=== PATIENT | male | born 1945 | race Caucasian/White ===

== ENCOUNTER → 2020-05-03 12:53 | Outpatient (CLI) | payer MEDICARE, MEDICAID, SELFPAY ==
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
--- NOTE | 2020-05-03 13:00 | XR_ITS ---
PROCEDURE: XR KNEE RT 3V CLINICAL INDICATION: RT KNEE PAIN COMPARISON: No exams were available for comparison FINDINGS: No fracture or dislocation. No lytic or blastic change. There is normal mineralization. There is mild joint space narrowing both medially and laterally. There is prominent spurring of the tibial spines. There may be mild focal calcification of the medial lateral meniscus. There is narrowing of patellofemoral space with mild spurring of the superior border of the patella. There is no definite effusion. Other findings:None. IMPRESSION: Moderate degenerate changes, possible mild chondrocalcinosis of the medial and lateral meniscus Dictated by: Dr. Oskar Hector MD 05/03/2020 15:16 Dr. Oskar Hector MD in [facility] 05/03/2020 15:16
== END ==
PROVIDERS: PCP Family Medicine; Visit Provider Anesthesiology Pain Medicine
DX: M54.16 Radiculopathy, lumbar region (principal); M25.561 Pain in right knee
CPT/HCPCS: 72131; 73562

== ENCOUNTER 2020-11-28 08:58 | Emergency (ER) | payer MEDICARE, MEDICAID, SELFPAY ==
[2020-11-28 09:00] VITALS: BP 137/79; PULSE 65; RESP 20; TEMP 36.6; O2SAT 98; BMI 27.6
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
[2020-11-28 09:31] VITALS: BP 121/62; PULSE 62; RESP 18; O2SAT 95
[2020-11-28 11:18] VITALS: BP 137/75; PULSE 78; RESP 16; TEMP 36.6; O2SAT 98
== END 2020-11-28 11:19 | disposition home or self-care (01) ==
PROVIDERS: Emergency Provider Emergency Medicine; PCP Family Medicine
DX: S20.211A Contusion of right front wall of thorax, initial encounter (principal); W22.8XXA Striking against or struck by other objects, initial encounter; Y92.89 Other specified places as the place of occurrence of the external cause; F17.210 Nicotine dependence, cigarettes, uncomplicated
CPT/HCPCS: 71101; 96372; 99282

== ENCOUNTER 2021-01-26 02:34 | Emergency (ER) | payer MEDICARE, MEDICAID, SELFPAY ==
[2021-01-26 02:42] VITALS: BP 130/75; PULSE 78; RESP 16; TEMP 37; O2SAT 96; BMI 27.1
[2021-01-26 03:15] LABS: Basophils % 0.5 % (0.1-2.0); Chloride 104 mmol/L (98-107); Eosinophils # 0.1 K/mm3 (0.0-0.4); Eosinophils % 1.3 % (0.1-12.0); Hematocrit 42.3 % (42.0-52.0); Hemoglobin 13.9 g/dL (14.1-18.0); Lymphocytes # 1.7 K/mm3 (0.7-4.5); Lymphocytes % 20.2 % (10-50); Mean Corpuscular HGB Conc 32.9 g/dL (31.8-35.4); Mean Corpuscular Hemoglobin 29.2 pg (27.0-31.2); Mean Corpuscular Volume 88.8 fl (80-94); Mean Platelet Volume 8.6 fl (7.4-10.4); Monocytes # 0.4 K/mm3 (0.1-1.0); Monocytes % 5.5 % (1.7-9.3); Neutrophils # 5.9 K/mm3 (1.8-7.8); Neutrophils % 72.4 % (37.0-80.0); Platelet Count 147 K/mm3 (142-424); Red Blood Count 4.76 M/mm3 (4.60-6.20); Sodium 138 mmol/L (136-145); White Blood Count 8.1 K/mm3 (4.8-10.8)
[2021-01-26 03:18] LABS: Alanine Aminotransferase 10 U/L (12-78); Albumin Level 4.4 g/dl (3.5-5.0); Albumin/Globulin Ratio 1.6 (1.1-1.8); Alkaline Phosphatase 85 U/L (38-126); Aspartate Amino Transferase 20 U/L (17-59); Bilirubin,Total 0.4 mg/dl (0.2-1.3); Blood Urea Nitrogen 13 mg/dl (9-20); Calcium 9.4 mg/dl (8.4-10.2); Carbon Dioxide 27 mmol/L (22.0-30.0); Creatinine Clearance Estimated 84 mL/min (50-200); Estimated Glomerular Filt Rate 111 ml/min (>60); GFR (African American) 134 ML/MIN (>60); Globulin 2.8 g/dL (1.3-3.2); Glucose 106 mg/dl (74-100); Total Protein,Serum 7.2 g/dl (6.3-8.2)
--- NOTE | 2021-01-26 03:41 | HMH.EDGENADL ---
ED Disposition Clinical Impression: Vomiting Qualifiers: Vomiting type: unspecified Vomiting Intractability: non-intractable Nausea presence: with nausea Qualified Code(s): R11.2 - Nausea with vomiting, unspecified Chronic pain Qualifiers: Chronic pain type: other chronic pain Qualified Code(s): G89.29 - Other chronic pain Disposition: Home, Self-Care Condition on Discharge: Good Additional Instructions: Follow-up with your primary care doctor today. Take Zofran as needed for nausea and vomiting. Return to the emergency department for any new or worsening symptoms. Prescriptions: Ondansetron [Zofran 4mg ODT] 4 mg PO TIDP PRN #10 tab PRN Reason: Nausea And Vomiting Transmission Status: Pending to [facility] Referrals: Macey Sandoval MD [Primary Care Provider] - - Critical Care Critical Care Time: No Attestation: On 01/26/21, the high probability of a clinically significant, sudden or life threatening deterioration of the following system(s) required my full and direct attention, intervention and personal management. The time I documented below is in addition to time spent performing reported procedures but includes the following listed in this critical care notation. Medical Decision Making - Blair Inquiry Pt receiving controlled substance: Yes Blair was queried for this patient: Yes Risks and benefits of using a controlled substance: were discussed with pt by me Vital Signs: 01/26/21 02:42 Temperature 98.6 F Temperature Source Oral Pulse Rate [Right Brachial] 78 Respiratory Rate 16 Blood Pressure [Right Arm] 130/75 Blood Pressure Mean [Right Arm] 93 Blood Pressure Source [Right Arm] Automatic Cuff Blood Pressure Position [Right Arm] Sitting 02 Sat by Pulse Oximetry 96 Oxygen Delivery Method Room Air - Lab Data Lab Results 01/26/21 02:57: WBC 8.1, RBC 4.76, Hgb 13.9 L, Hct 42.3, MCV 88.8, MCH 29.2, MCHC 32.9, RDW 14.0, Plt Count 147, MPV 8.6, Neut % (Auto) 72.4, Lymph % (Auto) 20.2, Dent % (Auto) 5.5, Eos % (Auto) 1.3, Baso % (Auto) 0.5, Neut # (Auto) 5.9, Lymph # (Auto) 1.7, Dent # (Auto) 0.4, Eos # (Auto) 0.1, Baso # (Auto) 0.0 01/26/21 02:57: Sodium 138, Potassium 4.0, Chloride 104, Carbon Dioxide 27, Anion Gap 11.0, BUN 13, Creatinine 0.70, Estimated Creat Clear 84, Estimated GFR 111, Est GFR ( Amer) 134, Glucose 106 H, Calcium 9.4, Total Bilirubin 0.4, AST 20, ALT 10 L, Alkaline Phosphatase 85, Total Protein 7.2, Albumin 4.4, Globulin 2.8, Albumin/Globulin Ratio 1.6 Result diagrams: 01/26/21 02:57 01/26/21 02:57 Orders (Tests/Meds): ED MEDICATIONS Generic Name Dose Route Start Last Admin Trade Name Freq PRN Reason Stop Dose Admin Lactated Ringer's 1,000 mls @ 999 mls/hr 01/26/21 03:15 01/26/21 03:33 Lactated Ringer's 1000 Ml Bag IV 01/26/21 04:15 999 mls/hr .Q1H1M MATTY Administration Discontinued Medications Generic Name Dose Route Start Last Admin Trade Name Freq PRN Reason Stop Dose Admin Gabapentin 400 mg 01/26/21 03:59 01/26/21 04:13 Gabapentin 100mg Capsule PO 01/26/21 04:00 400 mg ONCE ONE Administration Morphine Sulfate 4 mg 01/26/21 03:09 01/26/21 03:32 Morphine 4mg/Ml Syringe IV 01/26/21 03:10 4 mg ONCE ONE Administration Ondansetron HCl 4 mg 01/26/21 03:09 01/26/21 03:32 Ondansetron 4mg/2ml Vial IV 01/26/21 03:10 4 mg ONCE ONE Administration Medical Decision Narrative: The patient is a 75-year-old male who presents to the emergency department with worsening of chronic leg and back pain after being unable to keep medication down due to 4 days of vomiting. The patient's vital signs are stable and he is overall very well-appearing. The patient has not taken any medication for nausea. He reports that his pain is no different than his chronic pain just worse because he is unable to keep his medication down. He states it is similar to pain when he does not take his medication. Given that there has bee
[2021-01-26 05:47] VITALS: BP 126/82; PULSE 79; RESP 16; TEMP 37; O2SAT 96
== END 2021-01-26 05:48 | disposition home or self-care (01) ==
PROVIDERS: Emergency Provider Emergency Medicine; PCP Family Medicine
DX: R11.2 Nausea with vomiting, unspecified (principal); G89.29 Other chronic pain; F17.210 Nicotine dependence, cigarettes, uncomplicated
CPT/HCPCS: 80053; 85025; 96365; 96375; 99282; J2405

== ENCOUNTER 2022-01-28 00:47 | Emergency (ER) | payer MEDICARE, MEDICAID, SELFPAY ==
[2022-01-28 00:49] VITALS: BP 145/83; PULSE 83; RESP 19; TEMP 37; O2SAT 96; BMI 26.7
--- NOTE | 2022-01-28 01:08 | PC.NURSE ---
MD at bedside discussing POC with pt
--- NOTE | 2022-01-28 01:14 | HMH.EDGENADL ---
ED Disposition Clinical Impression: Chronic pain Qualifiers: Chronic pain type: other chronic pain Qualified Code(s): G89.29 - Other chronic pain Low back pain with bilateral sciatica Qualifiers: Chronicity: chronic Back pain laterality: bilateral Qualified Code(s): M54.42 - Lumbago with sciatica, left side Disposition: Home, Self-Care Condition on Discharge: Good Instructions: DI for Chronic Pain -- Adult, How to Measure Pain-Adult Additional Instructions: Please contact your pain clinic as soon as possible to arrange follow-up for refills. It is important you take your pain medications at home as prescribed to avoid running out or overdose. Return to the emergency department for any new or concerning symptoms, including but not limited to new numbness or tingling, urinary incontinence, fecal incontinence, or other concerns. Referrals: Evangelist Victoria MD [Primary Care Provider] - - Critical Care Critical Care Time: No Attestation: On 01/28/22, the high probability of a clinically significant, sudden or life threatening deterioration of the following system(s) required my full and direct attention, intervention and personal management. The time I documented below is in addition to time spent performing reported procedures but includes the following listed in this critical care notation. Medical Decision Making - Blair Inquiry Pt receiving controlled substance: No Vital Signs: 01/28/22 00:49 Temperature 98.6 F Temperature Source Oral Pulse Rate [Left Radial] 83 Respiratory Rate 19 Blood Pressure [Right Arm] 145/83 H Blood Pressure Mean [Right Arm] 103 Blood Pressure Source [Right Arm] Automatic Cuff Blood Pressure Position [Right Arm] Sitting 02 Sat by Pulse Oximetry 96 Oxygen Delivery Method Room Air Orders (Tests/Meds): ED MEDICATIONS Discontinued Medications Generic Name Dose Route Start Last Admin Trade Name Freq PRN Reason Stop Dose Admin Gabapentin 600 mg 01/28/22 01:13 01/28/22 01:21 Gabapentin 300mg Capsule PO 01/28/22 01:14 600 mg ONCE ONE Administration Medical Decision Narrative: In summary, this patient is a 76-year-old male with a history of chronic low back pain presented to the emergency department for evaluation because he ran out of gabapentin. No new symptoms. Differential diagnoses include chronic pain, sciatica, disc herniation, cauda equina syndrome. Patient has no alarm symptoms of cauda equina syndrome. He is at his baseline and comfortable appearing on exam. He is here because he is requesting to go home with for 5 tablets of gabapentin, however he does not want a prescription for fear of breaking his pain contract. I explained to him that we could give him a dose here, however we are not able to send him out with gabapentin tablets in hand. He expressed understanding agreement, and he is to call his pain clinic soon as possible for further evaluation and management. He was given 600 mg of gabapentin, which is his home dose, and he tolerated this well. At this time, he was deemed to be appropriate for discharge with outpatient follow-up. He was given strict return precautions and discharged in stable condition. General Adult HPI - General Stated complaint: Bilateral leg pain and burning Time Seen by Provider: 01/28/22 00:50 Mode of Arrival: Ambulatory - History of Present Illness HPI narrative: This patient is a 76-year-old male with a history of chronic low back pain with bilateral sciatica presenting to the emergency department for evaluation because he ran out of gabapentin at home. He follows with a pain clinic and is not due for refill for several more days. He denies any changes in his pain. It is in the middle of his low back and radiates down both legs, right greater than left. It is a dull ache in his back into burning pain in his lower extremities. It is moderate. He denies any new injuries. He denies any new numbness, tinglin
[2022-01-28 01:43] VITALS: BP 143/87; PULSE 83; RESP 16; TEMP 36.7; O2SAT 95
== END 2022-01-28 01:44 | disposition home or self-care (01) ==
PROVIDERS: Emergency Provider Emergency Medicine; PCP Family Medicine
DX: G89.29 Other chronic pain (principal); M54.42 Lumbago with sciatica, left side
CPT/HCPCS: 99283

== ENCOUNTER → 2022-02-13 13:41 | Outpatient (CLI) | payer MEDICARE, MEDICAID, SELFPAY ==
--- NOTE | 2022-02-13 14:08 | CT_ITS ---
FINAL REPORT TECHNIQUE: Axial images were obtained from the lung apex to the mid abdomen by computed tomography. This study was performed with techniques to keep radiation doses as low as reasonably achievable (ALARA). Individualized dose reduction techniques using automated exposure control or adjustment of mA and/or kV according to the patient's size were employed. CLINICAL HISTORY: H/O NICOTINE DEPENDENCE smoker 1ppd x 50 years no hx of cancer screening FINDINGS: CHEST CT LOW DOSE CTDI vol (mGy): 2.90 DLP (mGy-cm): 112.29 There is no axillary adenopathy. There is no hilar or mediastinal adenopathy. The heart is normal in size. There is no pericardial or pleural effusion. There is mild scarring and mild emphysema. There is a 2 mm right lower lobe nodule well seen on image 58. Limited images of the upper abdomen reveal cholecystectomy.. IMPRESSION: Right lower lobe nodule . Lung RADS category 2. Recommend 12 month follow-up low-dose chest CT. Reviewed, Interpreted and Dictated by Dre Vo III, MD Transcribed by Sofie Bang Authenticated and [facility]
== END ==
PROVIDERS: PCP Family Medicine; Visit Provider Family Medicine
DX: Z87.891 Personal history of nicotine dependence (principal); Z12.2 Encounter for screening for malignant neoplasm of respiratory organs
CPT/HCPCS: 71271

== ENCOUNTER 2022-06-25 08:16 | Emergency (ER) | payer MEDICARE, MEDICAID, SELFPAY ==
[2022-06-25 08:18] VITALS: BP 140/116; PULSE 99; RESP 18; TEMP 36.9; O2SAT 95; BMI 26.6
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
[2022-06-25 08:46] LABS: Basophils % 0.6 % (0.1-2.0); Eosinophils # 0.2 K/mm3 (0.0-0.4); Eosinophils % 2.1 % (0.1-12.0); Hematocrit 30.8 % (42.0-52.0); Hemoglobin 9.6 g/dL (14.1-18.0); Lymphocytes % 28.6 % (10-50); Mean Corpuscular HGB Conc 31.3 g/dL (31.8-35.4); Mean Corpuscular Hemoglobin 22.6 pg (27.0-31.2); Mean Corpuscular Volume 72.1 fl (80-94); Mean Platelet Volume 7.9 fl (7.4-10.4); Monocytes # 0.4 K/mm3 (0.1-1.0); Monocytes % 6.3 % (1.7-9.3); Neutrophils # 4.4 K/mm3 (1.8-7.8); Neutrophils % 62.4 % (37.0-80.0); Platelet Count 371 K/mm3 (142-424); Red Blood Count 4.27 M/mm3 (4.60-6.20); Red Cell Distribution Width 17.9 % (11.5-17.5)
--- NOTE | 2022-06-25 08:46 | PC.NURSE ---
pt ambulatory to restroom with cane, no complications
[2022-06-25 08:54] LABS: Chloride 102 mmol/L (98-107); Sodium 136 mmol/L (136-145)
[2022-06-25 08:57] LABS: Alanine Aminotransferase 12 U/L (12-78); Alkaline Phosphatase 84 U/L (38-126); Aspartate Amino Transferase 19 U/L (17-59); Bilirubin,Total 0.5 mg/dl (0.2-1.3); Blood Urea Nitrogen 13 mg/dl (9-20); Carbon Dioxide 29 mmol/L (22.0-30.0); Creatinine Clearance Estimated 81 mL/min (50-200); Estimated Glomerular Filt Rate 132 ml/min (>60); GFR (African American) 159 ML/MIN (>60); Lipase 86 U/L (23-300)
[2022-06-25 08:58] LABS: Albumin/Globulin Ratio 1.4 (1.1-1.8); Calcium 9.4 mg/dl (8.4-10.2); Globulin 2.9 g/dL (1.3-3.2); Glucose 105 mg/dl (74-100); Total Protein,Serum 6.9 g/dl (6.3-8.2)
[2022-06-25 09:06] VITALS: BP 118/76; PULSE 70; O2SAT 94
[2022-06-25 09:08] LABS: Coronavirus 19, PCR Not Detected (NotDetected); Influenza A, PCR Not Detected (NotDetected); Influenza B, PCR Not Detected (NotDetected)
--- NOTE | 2022-06-25 09:30 | PC.NURSE ---
pt to Ct
[2022-06-25 09:36] LABS: Microscopic, Urine URINE MICROSCOPIC (MICROSCOPIC)
[2022-06-25 09:38] LABS: Appearance,Urine CLEAR (Clear); Bilirubin,Urine Negative (Negative); Blood, Urine Negative (Negative); Color,Urine YELLOW (Yellow); Glucose,Urine (UA) Negative (Negative); Ketones,Urine Negative (Negative); Leukocyte Esterase,Urine Negative (Negative); Nitrate,Urine Negative (Negative); PH,Urine 6.5 (5.0-8.5); Protein,Urine Negative (Negative); Specific Gravity, Urine 1.015 (1.005-1.030); Urobilinogen,Urine 0.2 EU/dl (0.2)
[2022-06-25 09:49] LABS: Bacteria,Urine Trace /lpf; Squamous Epithelial Cell,Urine Occasional #/hpf (0-5)
[2022-06-25 10:01] VITALS: BP 129/62; PULSE 85; O2SAT 96
--- NOTE | 2022-06-25 11:27 | PC.NURSE ---
PALMIRA ALEJANDRO speaking with SARAN
[2022-06-25 12:50] VITALS: BP 119/63; PULSE 72; RESP 18; TEMP 36.9; O2SAT 96
== END 2022-06-25 12:55 | disposition home or self-care (01) ==
PROVIDERS: Emergency Provider Emergency Medicine; PCP Family Medicine
DX: M54.50 Low back pain, unspecified (principal); R11.2 Nausea with vomiting, unspecified; R19.7 Diarrhea, unspecified; R53.1 Weakness; N39.43 Post-void dribbling; Z20.822 Contact with and (suspected) exposure to COVID-19; F17.210 Nicotine dependence, cigarettes, uncomplicated; Z79.1 Long term (current) use of non-steroidal anti-inflammatories (NSAID); Z79.899 Other long term (current) drug therapy
CPT/HCPCS: 74177; 80053; 81001; 83690; 85025; 87086; 87088; 87186; 96361; 96374; 96375; 99285; C9803; J2405; Q9967; U0003; U0005

== ENCOUNTER 2022-08-15 06:06 | Day surgery (SDC) | payer MEDICARE, MEDICAID, SELFPAY ==
[2022-08-13 12:06] VITALS: BMI 26.6
[2022-08-15 06:33] VITALS: BP 131/82; PULSE 111; RESP 18; TEMP 36.5; O2SAT 97
--- NOTE | 2022-08-15 06:38 | [facility].SCOPE ---
Procedure: Date: 08/15/22 Patient Date of :: 1945 Procedure Performed:: Colonoscopy (aborted secondary to exceedingly poor bowel preparation) Indications:: Abnormal CT scan of abdomen/pelvis (abnormal thickening of right colon concerning for neoplasm) Performing Provider:: Joao Gaviria MD Referring Provider:: Dr. Victoria Sedation:: Monitored anesthesia care Procedure:: After informed consent was obtained the patient was taken to the endoscopy suite. Sedation ensued after the patient was transferred to the left lateral decubitus position. Pulse, blood pressure, and oxygen saturation were monitored throughout the procedure. Digital rectal exam revealed no significant abnormality. The colonoscope was placed in position. The distal colon was evaluated partially. Limited visualization secondary to exceedingly poor bowel preparation. Advancement of the colonoscope beyond the transverse colon was deemed unwarranted/unsafe. The colonoscope was carefully removed and the patient was transferred to recovery in stable condition. Please see findings and specimens below for detail. Findings:: Colonoscopy aborted secondary to exceedingly poor bowel preparation Specimens:: None Recommendations:: Will discuss with patient the importance of a tissue diagnosis and will proceed with future attempts or consultation in a different facility if the patient is agreeable. Complications:: Aborted secondary to poor bowel preparation Estimated blood obtained (mL): 0
[2022-08-15 07:00] VITALS: O2SAT 97
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
[2022-08-15 07:33] VITALS: BP 87/47; PULSE 88; RESP 15; TEMP 36.2; O2SAT 92
[2022-08-15 07:43] VITALS: BP 90/52; PULSE 70; RESP 16; O2SAT 95
[2022-08-15 07:53] VITALS: BP 109/61; PULSE 70; RESP 16; O2SAT 96
[2022-08-15 08:15] VITALS: BP 96/60; PULSE 78; RESP 16; O2SAT 96
== END 2022-08-15 08:15 | disposition home or self-care (01) ==
PROVIDERS: PCP Family Medicine; Visit Provider Surgery
PROC: 0DJD8ZZ Inspection of Lower Intestinal Tract, Via Natural or Artificial Opening Endoscopic (ICD-10-PCS; principal; 2022-08-15 07:30)
DX: R93.3 Abnormal findings on diagnostic imaging of other parts of digestive tract (principal); Z53.09 Procedure and treatment not carried out because of other contraindication; Z91.199 Patient's noncompliance with other medical treatment and regimen due to unspecified reason; Z86.010 Personal history of colon polyps; F17.210 Nicotine dependence, cigarettes, uncomplicated
CPT/HCPCS: 45378; J1610; J2704

== ENCOUNTER 2022-08-16 07:05 | Day surgery (SDC) | payer MEDICARE, MEDICAID, SELFPAY ==
[2022-08-15 09:36] VITALS: BMI 26.5
[2022-08-16] VITALS (7 sets, daily range): BP systolic 82–114; BP diastolic 46–75; PULSE 55–83; RESP 15–18; TEMP 36.1–36.3; O2SAT 95–98
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
--- NOTE | 2022-08-16 09:08 | HMH.SCOPE ---
Procedure: Date: 08/16/22 Patient Date of :: 1945 Procedure Performed:: Colonoscopy with biopsies Indications:: Abnormal CT scan Performing Provider:: Issac Varghese MD Referring Provider:: Evangelist Victoria Sedation:: Propofol Procedure:: After placing the patient in the left lateral decubitus position, the colonoscopy was gently inserted into the rectum and under direct visualization advanced to the cecum which was identified by transillumination in the right lower quadrant, identification of the ileocecal valve, appendiceal orifice, and cecal strap. Color, texture, mucosa, and anatomy of the colon were carefully examined with the scope. Findings:: Anal canal: normal Rectum: normal Sigmoid colon: normal without polyps or inflammatory changes Descending colon: normal without polyps or inflammatory changes Splenic flexure: normal Transverse colon: normal without polyps or inflammatory changes Hepatic flexure: normal Ascending colon: Large apple-core mucosal lesion occupying most of the ascending colon. Multiple biopsies obtained Cecum: normal Terminal ileum: Normal Impression: Right colon apple-core mass consistent with malignancy Specimens:: Colon mass Recommendations:: Surgical resection Repeat colonoscopy in ONE year after resection Complications:: None Estimated blood obtained (mL): 0
== END 2022-08-16 09:50 | disposition home or self-care (01) ==
PROVIDERS: PCP Family Medicine; Visit Provider Internal Medicine Gastroenterology
PROC: 0DJD8ZZ Inspection of Lower Intestinal Tract, Via Natural or Artificial Opening Endoscopic (ICD-10-PCS; CPT 45378; principal; 2022-08-16 08:30)
DX: R93.3 Abnormal findings on diagnostic imaging of other parts of digestive tract (principal); C18.2 Malignant neoplasm of ascending colon; F17.210 Nicotine dependence, cigarettes, uncomplicated; Z79.899 Other long term (current) drug therapy
CPT/HCPCS: 45380; 88305; 88342

== ENCOUNTER → 2022-08-27 08:34 | Outpatient (CLI) | payer MEDICARE, MEDICAID, SELFPAY ==
--- NOTE | 2022-08-27 08:40 | CT_ITS ---
FINAL REPORT TECHNIQUE: Thin section axial images were obtained from the lung apices through the upper abdomen without contrast. This study was performed with techniques to keep radiation doses as low as reasonably achievable (ALARA). Individualized dose reduction techniques using automated exposure control or adjustment of mA and/or kV according to the patient's size were employed. CLINICAL HISTORY: HX OF COLON CANCER. eval chest COMPARISON: 06/25/2022, 02/13/2022 FINDINGS: There is no mediastinal, hilar, or axillary lymphadenopathy. There is no pleural or pericardial effusion. There is emphysematous change. A right lower lobe granuloma is seen. Lungs are otherwise clear. No suspicious nodules identified.. Limited, unenhanced evaluation of the upper abdomen demonstrate changes of cholecystectomy with mild, stable biliary ductal dilatation. There may be a new hypodense lesion in the left hepatic lobe measuring 14 mm. Remaining upper abdomen without acute abnormality. There is no acute osseous abnormality. IMPRESSION: No acute intrathoracic abnormality or evidence of metastatic disease. Possible new liver lesion. Consider repeat contrast enhanced CT of the abdomen and pelvis or MRI liver mass protocol for further evaluation. Reviewed, Interpreted and Dictated by Isela Parr MD Transcribed by Charlee Elizabeth Authenticated and . [facility]
== END ==
PROVIDERS: PCP Family Medicine; Visit Provider Colon & Rectal Surgery
DX: C18.9 Malignant neoplasm of colon, unspecified (principal)
CPT/HCPCS: 71250

== ENCOUNTER 2022-10-27 11:59 | Emergency (ER) | payer MEDICARE, MEDICAID, SELFPAY ==
[2022-10-27 12:14] VITALS: BP 150/67; PULSE 79; RESP 18; TEMP 37.4; O2SAT 95; BMI 26.7
[2022-10-27 12:30] VITALS: BP 106/58; PULSE 81; O2SAT 92
--- NOTE | 2022-10-27 12:34 | CT_ITS ---
PROCEDURE INFORMATION: Exam: CT Abdomen And Pelvis With Contrast Exam date and time: 10/27/2022 2:24 PM Age: 77 years old Clinical indication: Constipation; Prior surgery; Additional info: Remote bowel resection, cancer, no bm TECHNIQUE: Imaging protocol: Computed tomography of the abdomen and pelvis with contrast. Radiation optimization: All CT scans at this facility use at least one of these dose optimization techniques: automated exposure control; mA and/or kV adjustment per patient size (includes targeted exams where dose is matched to clinical indication); or iterative reconstruction. Contrast material: ISOVUE; Contrast volume: 75 ml; Contrast route: IV; REPORTING DATA: Count of CT and Cardiac NM exams in prior 12 months: This patient has received 3 known CTs and 0 known cardiac nuclear medicine studies in the 12 months prior to the current study. COMPARISON: CT ABDOMEN PELVIS W CON 06/25/2022 9:32 AM FINDINGS: Liver: Normal. No mass. Gallbladder and bile ducts: Cholecystectomy. Persistent intra and extrahepatic biliary dilatation unchanged. Pancreas: Normal. No ductal dilation. Spleen: Evidence of prior splenic granulomatous disease. Adrenal glands: Normal. No mass. Kidneys and ureters: Normal. No hydronephrosis. Stomach and bowel: Colonic diverticulosis. No evidence of diverticulitis. Persistent asymmetric wall thickening of the ascending colon with marked irregularity of the lumen. Findings do not appear significantly changed compared with the previous study. Findings highly suspicious for malignancy until proven otherwise. Moderate stool burden. Mild thickening of distal small bowel loops in the region of the terminal ileum just proximal to the cecal mass. Appendix: No evidence of appendicitis. Intraperitoneal space: Unremarkable. No free air. No significant fluid collection. Vasculature: Scattered regions of atherosclerotic vascular calcification within the abdominal aorta and common iliac arteries. Lymph nodes: Nonspecific mesenteric and retroperitoneal lymph nodes. Urinary bladder: Unremarkable as visualized. Reproductive: Unremarkable as visualized. Bones/joints: Lumbar spondylosis with advanced changes of disc degeneration. Metallic densities again demonstrated in association with the lower lumbar spine consistent with previous injury. Soft tissues: Unremarkable. IMPRESSION: 1. Persistent asymmetric wall thickening of the ascending colon with marked irregularity of the lumen. Findings do not appear significantly changed compared with the 06/25/2022 examination. Findings highly suspicious for malignancy until proven otherwise. 2. Moderate stool burden. 3. Nonspecific mesenteric and retroperitoneal lymph nodes. Findings new. 4. Recommend follow-up with colonoscopy.
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
--- NOTE | 2022-10-27 13:50 | PC.NURSE ---
rounded on pt no complaints at this time, call light @ bs
[2022-10-27 14:01] VITALS: BP 110/60; PULSE 71; O2SAT 96
[2022-10-27 14:08] LABS: Chloride 97 mmol/L (98-107); Potassium 4.1 mmoL/L (3.5-5.1); Sodium 136 mmol/L (136-145)
[2022-10-27 14:09] LABS: Basophils % 0.2 % (0.1-2.0); Eosinophils # 0.2 K/mm3 (0.0-0.4); Eosinophils % 2.8 % (0.1-12.0); Hematocrit 35.7 % (42.0-52.0); Hemoglobin 10.9 g/dL (14.1-18.0); Lymphocytes % 27.9 % (10-50); Mean Corpuscular HGB Conc 30.4 g/dL (31.8-35.4); Mean Corpuscular Volume 82.1 fl (80-94); Mean Platelet Volume 8.8 fl (7.4-10.4); Monocytes # 0.5 K/mm3 (0.1-1.0); Monocytes % 7.4 % (1.7-9.3); Neutrophils # 4.4 K/mm3 (1.8-7.8); Neutrophils % 61.7 % (37.0-80.0); Platelet Count 333 K/mm3 (142-424); Red Blood Count 4.35 M/mm3 (4.60-6.20); Red Cell Distribution Width 20.5 % (11.5-17.5); White Blood Count 7.2 K/mm3 (4.8-10.8)
--- NOTE | 2022-10-27 14:09 | PC.NURSE ---
covid swab sent to lab
[2022-10-27 14:10] LABS: Blood Urea Nitrogen 10 mg/dl (9-20); Creatinine Clearance Estimated 81 mL/min (50-200); Estimated Glomerular Filt Rate 162 ml/min (>60); GFR (African American) 196 ML/MIN (>60)
[2022-10-27 14:11] LABS: Alanine Aminotransferase 13 U/L (12-78); Albumin Level 3.8 g/dl (3.5-5.0); Albumin/Globulin Ratio 1.2 (1.1-1.8); Alkaline Phosphatase 84 U/L (38-126); Anion Gap 14.1 mEq/L (5-15); Aspartate Amino Transferase 23 U/L (17-59); Bilirubin,Total 0.3 mg/dl (0.2-1.3); Calcium 9.2 mg/dl (8.4-10.2); Carbon Dioxide 29 mmol/L (22.0-30.0); Globulin 3.1 g/dL (1.3-3.2); Glucose 105 mg/dl (74-100); Lipase 38 U/L (23-300); Total Protein,Serum 6.9 g/dl (6.3-8.2)
--- NOTE | 2022-10-27 14:12 | PC.NURSE ---
Waiting on lab to come back before pt can go to ct scan
[2022-10-27 14:13] LABS: Coronavirus 19, PCR Not Detected (NotDetected); Influenza A, PCR Not Detected (NotDetected); Influenza B, PCR Not Detected (NotDetected)
[2022-10-27 16:58] VITALS: BP 112/71; PULSE 77; RESP 20; TEMP 37.4; O2SAT 97
== END 2022-10-27 17:00 | disposition home or self-care (01) ==
PROVIDERS: Emergency Provider Emergency Medicine; PCP Family Medicine
DX: K59.00 Constipation, unspecified (principal); C18.9 Malignant neoplasm of colon, unspecified; F17.210 Nicotine dependence, cigarettes, uncomplicated
CPT/HCPCS: 74177; 80053; 83690; 85025; 96360; 99285; C9803; Q9967; U0003; U0005

== ENCOUNTER → 2022-12-05 13:46 | Outpatient (CLI) | payer MEDICARE, MEDICAID, SELFPAY ==
[2022-12-05 14:19] LABS: Blood Urea Nitrogen 18 mg/dl (9-20); Estimated Glomerular Filt Rate 110 ml/min (>60); GFR (African American) 133 ML/MIN (>60)
== END ==
PROVIDERS: PCP Family Medicine; Visit Provider Family Medicine
DX: Z01.812 Encounter for preprocedural laboratory examination (principal)
CPT/HCPCS: 36415; 82565; 84520

== ENCOUNTER → 2022-12-07 09:07 | Outpatient (CLI) | payer MEDICARE, MEDICAID, SELFPAY | PROVIDERS: PCP Family Medicine; Visit Provider Colon & Rectal Surgery | DX: K83.8 Other specified diseases of biliary tract (principal) ==

== ENCOUNTER 2023-05-26 04:33 | Emergency (ER) | payer MEDICARE, MEDICAID, SELFPAY ==
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
[2023-05-26 04:39] VITALS: BP 151/80; PULSE 85; RESP 18; TEMP 36.6; O2SAT 99; BMI 26.6
[2023-05-26] MEDS: GABAPENTIN 600MG TABLET 600 MG PO (04:46)
--- OUTSIDE RECORDS SUMMARY | 2023-05-26 04:46 | XMS_ITS | Continuity of Care Document ---
Author Name Unknown Organization [facility] Address [address] [place] [address] Phone Care Team Providers Care Counter Former Name Role Phone Miguel Connor MD Unavailable Unavailable Allergies, Adverse Reactions, Alerts Substance Reaction Status Criticality No Known Drug Allergies Active No I nformation Procedures Procedure Date OFFICE/OUTPATIENT VISIT, EST PHONE E/M BY PHYS 5-10 MIN PHONE E/M BY PHYS 5-10 MIN OFFICE/OUTPATIENT VISIT, EST Presumptive EIA Definitive, UDS Panel 15-21 Drugs PHONE E/M BY PHYS 5-10 MIN PHONE E/M BY PHYS 5-10 MIN Presumptive EIA OFFICE/OUTPATIENT VISIT, EST Definitive, UDS Panel 15-21 Drugs PHONE E/M BY PHYS 5-10 MIN PHONE E/M BY PHYS 5-10 MIN Presumptive EIA OFFICE/OUTPATIENT VISIT, EST Definitive, UDS Panel 15-21 Drugs PHONE E/M BY PHYS 5-10 MIN PHONE E/M BY PHYS 5-10 MIN OFFICE/OUTPATIENT VISIT, EST Presumptive EIA OFFICE/OUTPATIENT VISIT, EST Definitive, UDS Panel 15-21 Drugs TELEHEALTH OFFICE/OUTPATIENT VISIT, EST TELEHEALTH OFFICE/OUTPATIENT VISIT, EST TELEHEALTH OFFICE/OUTPATIENT VISIT, EST Presumptive EIA OFFICE/OUTPATIENT VISIT, EST Definitive, UDS Panel 15-21 Drugs DRAIN/INJ JOINT/BURSA W/US Gel-syn injection 0.1 mg Lidocaine injection Presumptive EIA DRAIN/INJ JOINT/BURSA W/US Gel-syn injection 0.1 mg Lidocaine injection Definitive, UDS Panel 15-21 Drugs TELEHEALTH OFFICE/OUTPATIENT VISIT, EST DRAIN/INJ JOINT/BURSA W/US Lidocaine injection Gel-syn injection 0.1 mg OFFICE/OUTPATIENT VISIT, EST Presumptive EIA OFFICE/OUTPATIENT VISIT, EST Definitive, UDS Panel 15-21 Drugs OFFICE/OUTPATIENT VISIT, EST OFFICE/OUTPATIENT VISIT, EST OFFICE/OUTPATIENT VISIT, EST Presumptive EIA OFFICE/OUTPATIENT VISIT, EST Definitive, UDS Panel 15-21 Drugs DRAIN/INJ JOINT/BURSA W/US Gel-syn injection 0.1 mg Lidocaine injection DRAIN/INJ JOINT/BURSA W/US Gel-syn injection 0.1 mg Lidocaine injection DRAIN/INJ JOINT/BURSA W/US Gel-syn injection 0.1 mg Lidocaine injection OFFICE/OUTPATIENT VISIT, EST Presumptive EIA Definitive, UDS Panel 15-21 Drugs DRAIN/INJ JOINT/BURSA W/US Methylprednisolone 40 MG inj Lidocaine injection BUPIVACAINE NO EPI .25% PER 1 ML 2018 OFFICE/OUTPATIENT VISIT, EST OFFICE/OUTPATIENT VISIT, EST OFFICE/OUTPATIENT VISIT, EST DRAIN/INJ JOINT/BURSA W/US Gel-syn injection 0.1 mg OFFICE/OUTPATIENT VISIT, EST DRAIN/INJ JOINT/BURSA W/US Presumptive EIA Gel-syn injection 0.1 mg Definitive, UDS Panel 15-21 Drugs DRAIN/INJ JOINT/BURSA W/US Gel-syn injection 0.1 mg DRAIN/INJ JOINT/BURSA W/US Methylprednisolone 40 MG inj OFFICE/OUTPATIENT VISIT, EST OFFICE/OUTPATIENT VISIT, EST Presumptive EIA Definitive, UDS Panel 15-21 Drugs OFFICE/OUTPATIENT VISIT, EST OFFICE/OUTPATIENT VISIT, EST OFFICE/OUTPATIENT VISIT, EST OFFICE/OUTPATIENT VISIT, EST Presumptive EIA Definitive, UDS Panel 15-21 Drugs OFFICE/OUTPATIENT VISIT, EST OFFICE/OUTPATIENT VISIT, EST Presumptive EIA OFFICE/OUTPATIENT VISIT, EST Definitive, UDS Panel 15-21 Drugs OFFICE/OUTPATIENT VISIT, EST DRAIN/INJ JOINT/BURSA W/US Hyalgan/supartz inj per dose OFFICE/OUTPATIENT VISIT, EST DRAIN/INJ JOINT/BURSA W/US Hyalgan/supartz inj per dose Presumptive EIA Definitive, UDS Panel 15-21 Drugs OFFICE/OUTPATIENT VISIT, EST OFFICE/OUTPATIENT VISIT, EST Presumptive EIA OFFICE/OUTPATIENT VISIT, EST Definitive, UDS Panel 15-21 Drugs OFFICE/OUTPATIENT VISIT, EST OFFICE/OUTPATIENT VISIT, EST Presumptive EIA OFFICE/OUTPATIENT VISIT, EST Definitive, UDS Panel 15-21 Drugs OFFICE/OUTPATIENT VISIT, EST OFFICE/OUTPATIENT VISIT, EST OFFICE/OUTPATIENT VISIT, EST Presumptive, Drug Screen,cup OFFICE/OUTPATIENT VISIT, EST Definitive, UDS Panel 15-21 Drugs OFFICE/OUTPATIENT VISIT, EST DRAIN/INJ JOINT/BURSA W/US Hyalgan/supartz inj per dose OFFICE/OUTPATIENT VISIT, EST DRAIN/INJ JOINT/BURSA W/US Hyalgan/supartz inj per dose Presumptive, Drug Screen,cup DRAIN/INJ JOINT/BURSA W/US Hyalgan/supartz inj per dose Definitive, UDS Panel 15-21 Drugs OFFICE/OUTPATIENT VISIT, EST OFFICE/OUTPATIENT VISIT, EST OFFICE/OUTPATIENT VISIT, EST Presumptive, Drug Screen,cup OFFICE/OUTPATIENT VISIT, EST Presumptive, Drug Screen,cup OFFICE/OUTPATIENT VISIT, EST Difinitive, UDS Panel 8-14 Drugs 2015 OFFICE/OUTPATIENT VISIT, EST OFFICE/OUTPATIENT VISIT, EST OFFICE/OUTPATIENT VISIT, EST DRAIN/INJECT, JOINT/BURSA Methylprednisolone 40 MG inj Omnipaque 300-349/ml 1ml DRAIN/INJECT, JOINT/BURSA Methylprednisolone 40 MG inj Omnipaque 300-349/ml 1ml Qualitative, Drug Screen, [facility] 5 Assay of methadone Assay of benzodiazepines Assay of amphetamines Assay of dihydrocodeinone Assay of urine alkaloids Assay Of Opiates, Herion Assay Of Opiates, Morphine Assay of cocaine QUANTITATIVE ASSAY, DRUG, Fentanyl Assay of meprobamate Assay of dihydromorphinone QUANTITATIVE ASSAY, DRUG, Gabapentin Mar DRAIN/INJECT, JOINT/BURSA Methylprednisolone 40 MG inj Omnipaque 300-349/ml 1ml DRAIN/INJECT, JOINT/BURSA Methylprednisolone 40 MG inj Omnipaque 300-349/ml 1ml Qualitative, Drug Screen, Cup 5 OFFICE/OUTPATIENT VISIT, EST Assay of methadone Assay of benzodiazepines Assay of amphetamines Assay of dihydrocodeinone Assay of urine alkaloids Assay Of Opiates, Herion Assay Of Opiates, Morphine Assay of cocaine QUANTITATIVE ASSAY, DRUG, Fentanyl Assay of meprobamate Assay of dihydromorphinone OFFICE/OUTPATIENT VISIT, EST OFFICE/OUTPATIENT VISIT, EST OFFICE/OUTPATIENT VISIT, EST Qualitative, Drug Screen, Cup 5 Assay of methadone Assay of benzodiazepines Assay of amphetamines Assay of cocaine Assay of dihydrocodeinone Assay of urine alkaloids Assay Of Opiates, Herion Assay Of Opiates, Morphine Assay of meprobamate QUANTITATIVE ASSAY, DRUG, Fentanyl Assay of dihydromorphinone OFFICE/OUTPATIENT VISIT, EST OFFICE/OUTPATIENT VISIT, EST OFFICE/OUTPATIENT VISIT, EST OFFICE/OUTPATIENT VISIT, EST Qualitative, Drug Screen, Cup 4 ASSAY OF OPIATES, 6 Acetylmorphine ASSAY OF ETHANOL QUANTITATIVE ASSAY, DRUG, Fentanyl ASSAY OF BARBITURATES ASSAY OF COCAINE ASSAY OF URINE CREATININE QUANTITATIVE ASSAY, DRUG, Cannabinoids D QUANTITATIVE ASSAY, DRUG, Carisoprodol D OFFICE/OUTPATIENT VISIT, EST Qualitative, Drug Screen, Cup 4 OFFICE/OUTPATIENT VISIT, EST Qualitative, Drug Screen, Cup 4 ASSAY OF OPIATES, 6 Acetylmorphine ASSAY OF ETHANOL QUANTITATIVE ASSAY, DRUG, Fentanyl ASSAY OF BARBITURATES ASSAY OF COCAINE ASSAY OF URINE CREATININE QUANTITATIVE ASSAY, DRUG, Cannabinoids N QUANTITATIVE ASSAY, DRUG, Carisoprodol N OFFICE/OUTPATIENT VISIT, EST Qualitative, Drug Screen, Cup 4 OFFICE/OUTPATIENT VISIT, EST OFFICE/OUTPATIENT VISIT, EST OFFICE/OUTPATIENT VISIT, EST OFFICE/OUTPATIENT VISIT, EST Qualitative, Drug Screen, Cup 4 ASSAY OF OPIATES, 6 Acetylmorphine ASSAY OF ETHANOL QUANTITATIVE ASSAY, DRUG, Fentanyl ASSAY OF BARBITURATES ASSAY OF COCAINE ASSAY OF URINE CREATININE QUANTITATIVE ASSAY, DRUG, Cannabinoids J QUANTITATIVE ASSAY, DRUG, Carisoprodol J ASSAY OF AMPHETAMINES OFFICE/OUTPATIENT VISIT, EST OFFICE/OUTPATIENT VISIT, EST OFFICE/OUTPATIENT VISIT, EST OFFICE/OUTPATIENT VISIT, EST OFFICE/OUTPATIENT VISIT, EST Qualitative, Drug Screen, Cup 4 ASSAY OF OPIATES, 6 Acetylmorphine ASSAY OF ETHANOL QUANTITATIVE ASSAY, DRUG, Fentanyl ASSAY OF BARBITURATES ASSAY OF COCAINE ASSAY OF URINE CREATININE QUANTITATIVE ASSAY, DRUG, Cannabinoids M QUANTITATIVE ASSAY, DRUG, Carisoprodol M ASSAY OF AMPHETAMINES QUANTITATIVE ASSAY, DRUG, Fentanyl QUANTITATIVE ASSAY, DRUG, Cannabinoids M OFFICE/OUTPATIENT VISIT, EST OFFICE/OUTPATIENT VISIT, EST OFFICE/OUTPATIENT VISIT, EST 1 Rx via qualified eRx sys OFFICE/OUTPATIENT VISIT, EST OFFICE/OUTPATIENT VISIT, EST OFFICE/OUTPATIENT VISIT, EST OFFICE/OUTPATIENT VISIT, EST OFFICE/OUTPATIENT VISIT, EST OFFICE/OUTPATIENT VISIT, EST INJ PARAVERT F JNT L/S 1 LEV INJ PARAVERT F JNT L/S 2 LEV INJ PARAVERT F JNT L/S 3 LEV MOD CS BY SAME PHYS, 5 YRS + Ringers lactate infusion ALFENTA 1 ML OFFICE/OUTPATIENT VISIT, EST Fluoroscopic Guidance For Spine Injectio n INJECT SPINE L/S (CD) Omnipaque 300-349/ml 1ml Betamethasone acet&sod phosp MOD CS BY SAME PHYS, 5 YRS + Ringers lactate infusion ALFENTA 1 ML BUPIVACAINE NO EPI .25% PER 1 ML 2012 OFFICE/OUTPATIENT VISIT, EST OFFICE/OUTPATIENT VISIT, EST OFFICE/OUTPATIENT VISIT, EST OFFICE/OUTPATIENT VISIT, EST OFFICE/OUTPATIENT VISIT, EST OFFICE/OUTPATIENT VISIT, EST OFFICE/OUTPATIENT VISIT, EST OFFICE/OUTPATIENT VISIT, EST INJECT SACROILIAC JOINT MOD CS BY SAME PHYS, 5 YRS + Ringers lactate infusion Methylprednisolone 40 MG inj INJECT SACROILIAC JOINT MOD CS BY SAME PHYS, 5 YRS + Ringers lactate infusion OFFICE/OUTPATIENT VISIT, EST OFFICE/OUTPATIENT VISIT, EST FENTANYL 1 ML N BLOCK, LUMBAR/THORACIC MOD CS BY SAME PHYS, 5 YRS + Ringers lactate infusion BUPIVACAINE NO EPI .25% PER 1 ML 2011 BUPIVACAINE NO EPI .5% PER 1 ML 012 Omnipaque 300-349/ml 1ml OFFICE/OUTPATIENT VISIT, EST OFFICE/OUTPATIENT VISIT, EST OFFICE/OUTPATIENT VISIT, EST OFFICE/OUTPATIENT VISIT, EST OFFICE/OUTPATIENT VISIT, EST OFFICE/OUTPATIENT VISIT, EST OFFICE/OUTPATIENT VISIT, EST OFFICE/OUTPATIENT VISIT, EST OFFICE/OUTPATIENT VISIT, EST OFFICE/OUTPATIENT VISIT, EST OFFICE/OUTPATIENT VISIT, EST OFFICE/OUTPATIENT VISIT, EST OFFICE/OUTPATIENT VISIT, EST -2010 OFFICE/OUTPATIENT VISIT, EST OFFICE/OUTPATIENT VISIT, EST OFFICE/OUTPATIENT VISIT, EST -2010 OFFICE/OUTPATIENT VISIT, EST OFFICE/OUTPATIENT VISIT, EST OFFICE/OUTPATIENT VISIT, EST OFFICE/OUTPATIENT VISIT, EST OFFICE/OUTPATIENT VISIT, EST OFFICE/OUTPATIENT VISIT, EST OFFICE/OUTPATIENT VISIT, EST OFFICE/OUTPATIENT VISIT, EST OFFICE/OUTPATIENT VISIT, EST OFFICE/OUTPATIENT VISIT, EST OFFICE/OUTPATIENT VISIT, EST OFFICE/OUTPATIENT VISIT, EST OFFICE/OUTPATIENT VISIT, EST OFFICE/OUTPATIENT VISIT, EST OFFICE/OUTPATIENT VISIT, EST INJECT SPINE L/S (CD) Fluoroscopic Guidance For Spine Injectio n INJ FORAMEN EPIDURAL L/S Fluoroscopic Guidance For Spine Injectio n INJ FORAMEN EPIDURAL ADD-ON INJ FORAMEN EPIDURAL L/S Fluoroscopic Guidance For Spine Injectio n OFFICE/OUTPATIENT VISIT, EST INJECT FOR SPINE DISK X-RAY X-RAY OF LOWER SPINE DISK OFFICE/OUTPATIENT VISIT, NEW Advance Directives Directive Yes / No Effective Date File Name No Information Encounters Encounter Description Practice Location Reason(s) For Visit Diagnoses Date Provider Providers Copied on Encounter [facility], [address], [place], [address], tel:[phone] [facility] No Information 1 Nikolas Rivera. [address], [place], [place], [id number], [place]. tel:[phone] OFFICE/OUTPA TIENT VISIT, EST [facility], [address], [place], [address], tel:[phone] [facility] right lower back pain (chief complaint) Body mass index (BMI) 26.0-26.9, adultPostlami nectomy syndrome, not elsewhere classifiedRad iculopathy, lumbosacral regionOther intervertebra l disc displacement, lumbar regionSpondyl osis without myelopathy or radiculopathy , lumbar regionLong term (current) use of opiate analgesic 1 Ryan Carcamo. [address], [place], [address], [place]. tel:[phone] Referring Provider: Darin Short, [address], [place], [address]. tel:[phone] PHONE E/M BY PHYS 5-10 MIN [facility], [address], [place], [address], [place] tel:[phone] [facility] lower back (chief complaint) Other intervertebra l disc displacement, lumbar region Mar-0 1 Brueggemann Natacha. [address], [place], [place], [id number], [place]. tel:[phone] Referring Provider: Shahid [address], [place], [place], [id number]. tel:[phone] PHONE E/M BY PHYS 5-10 MIN [facility], [address], [place], [address], tel:[phone] [facility] lower back (chief complaint) Other intervertebra l disc displacement, lumbar region Mar-0 1 [facility]. [address], [place], [place], [id number], [place]. tel:[phone] Referring Provider: Shahid [address], [place], [place], [id number]. tel:[phone] OFFICE/OUTPA TIENT VISIT, EST [facility], [address], [place], [address], [place] tel:[phone] [facility] Lower Back Pain (chief complaint) Other intervertebra l disc displacement, lumbar regionLong term (current) use of opiate analgesic Jan- 1 [facility]. [address], [place], [place], [id number], [place]. tel:[phone] Referring Provider: Shahid [address], [place], [place], [id number]. tel:[phone] PHONE E/M BY PHYS 5-10 MIN [facility], [address], [place], [address], [place] tel:[phone] [facility] Lower Back Pain (chief complaint) Other intervertebra l disc displacement, lumbar region 1 Hari Manzano. [address], [place], [place], [id number], [place]. tel:[phone] Referring Provider: Shahid [address], [place], [place], [id number]. tel:[phone] PHONE E/M BY PHYS 5-10 MIN [facility], [address], [place], [address], [place] tel:[phone] [facility] Lower Back Pain (chief complaint) Other intervertebra l disc displacement, lumbar region 1 Sunil Wallis. [address], [place], [address], [place]. tel:[phone] Referring Provider: Shahid [address], [place], [place], [id number]. tel:[phone] OFFICE/OUTPA TIENT VISIT, EST [facility], [address], [place], [address], [place] tel:[phone] [facility] Lower Back Pain (chief complaint) Other intervertebra l disc displacement, lumbar regionLong term (current) use of opiate analgesic 1 Sunil Wallis. [address], [place], [address], [place]. tel:[phone] Referring Provider: Shahid [address], [place], [place], [id number]. tel:[phone] PHONE E/M BY PHYS 5-10 MIN [facility], [address], [place], [address], [place] tel:[phone] [facility] Lower Back Pain (chief complaint) Other intervertebra l disc displacement, lumbar region Sep- 1 Sunil Wallis. [address], [place], [address], [place]. tel:[phone] Referring Provider: Shahid [address], [place], [place], [id number]. tel:[phone] PHONE E/M BY PHYS 5-10 MIN [facility], [address], [place], [facility], [place] tel:[phone] [facility] Lower Back Pain (chief complaint) Other intervertebra l disc displacement, lumbar region 1 Sunil Wallis. [address], [place], [facility], [place]. tel:[phone] Referring Provider: Shahid [address], [place], [place], [id number]. tel:[phone] OFFICE/OUTPA TIENT VISIT, EST [facility], [address], [place], [facility], [place] tel:[phone] [facility] Lower Back Pain (chief complaint) terminal operator (current) use of opiate analgesicOthe r intervertebra l disc displacement, lumbar region 1 Sunil Wallis. [address], [place], [address], [place]. tel:[phone] Referring Provider: Shahid [address], [place], [place], [id number]. tel:[phone] PHONE E/M BY PHYS 5-10 MIN [facility], [address], [place], [facility], [place] tel:[phone] [facility] Lower Back Pain (chief complaint) Other intervertebra l disc displacement, lumbar region 1 Sunil Wallis. [address], [place], [address], [place]. tel:[phone] Referring Provider: Shahid [address], [place], [place], [id number]. tel:[phone] PHONE E/M BY PHYS 5-10 MIN [facility], [address], [place], [address], [place] tel:[phone] [facility] Lower Back Pain (chief complaint) Radiculopathy , lumbosacral region 0 Sunil Wallis. [address], [place], [address], [place]. tel:[phone] Referring Provider: Shahid [address], [place], [id number]. tel:[phone] OFFICE/OUTPA TIENT VISIT, EST [facility], [address], [place], [facility], [place] tel:[phone] [facility] lower back (chief complaint) knee (chief complaint) Radiculopathy , lumbosacral region 0 Zenon Castañeda. [address], [place], [place], [id number], [place]. tel:[phone] Referring Provider: Shahid Alegre [address], [place], [id number]. tel:[phone] OFFICE/OUTPA TIENT VISIT, EST [facility], [address], [place], [facility], [place] tel:[phone] [facility] Lower back (chief complaint) Knee (chief complaint) Encounter for screening for other disorderLong term (current) use of opiate analgesicPain in right kneeRadiculop athy, lumbar regionBody mass index (BMI) 23.0-23.9, adult 0 Nikolas Rivera. [address], [place], [place], [id number], [place]. tel:[phone] Referring Provider: Shahid [address], [place], [id number]. tel:[phone] TELEHEALTH OFFICE/OUTPA TIENT VISIT, EST [facility], [address], [place], [address], [place] tel:[phone] [facility] Lower back (chief complaint) Other intervertebra l disc displacement, lumbar region 0 1-202 0 [employer] Chaparrita. [address], [address], [place], [facility], [place]. tel:[phone] Referring Provider: Shahid [address], [place], [place], [id number]. tel:[phone] TELEHEALTH OFFICE/OUTPA TIENT VISIT, EST [facility], [address], [place], [facility], [place] tel:[phone] [facility] Lower Back Pain (chief complaint) Other intervertebra l disc displacement, lumbar region Sep-0 2-202 0 Sunil Wallis. [address], [place], [facility], [place]. tel:[phone] Referring Provider: Shahid [address], [place], [place], [id number]. tel:[phone] TELEHEALTH OFFICE/OUTPA TIENT VISIT, EST [facility], [address], [place], [facility], [place] tel:[phone] [facility] Lower Back Pain (chief complaint) Other intervertebra l disc displacement, lumbar region Aug-1 0-202 0 Sunil Wallis. [address], [place], [facility], [place]. tel:[phone] Referring Provider: Shahid [address], [place], [place], [id number]. tel:[phone] OFFICE/OUTPA TIENT VISIT, EST [facility], [address], [place], [facility], [place] tel:[phone] [facility] Lower back Pain (chief complaint) terminal operator (current) use of opiate analgesicOthe r intervertebra l disc displacement, lumbar region Cr-0 7-202 0 Sunil Wallis. [address], [place], [facility], [place]. tel:[phone] Referring Provider: Bimal Barber, [address], [place], [facility]. tel:[phone] [facility], [address], [place], [address], [place] tel:[phone] [facility] knee (chief complaint) Unilateral primary osteoarthriti s, left knee Qamar-0 0 [address], [place], [place], [id number], [place]. tel:[phone] Referring Provider: Shahid [address], [place], [place], [id number]. tel:[phone] [facility], [address], [place], [address], [place] tel:[phone] [facility] knee (chief complaint) Unilateral primary osteoarthriti s, left kneeLong term (current) use of opiate analgesic 0 Vic [address], [place], [id number], [place]. tel:[phone] Referring Provider: Darin Short, [address] [facility], [place], [address]. tel:[phone] TELEHEALTH OFFICE/OUTPA TIENT VISIT, EST [facility], [address], [place], [address], [place] tel:[phone] [facility] knee (chief complaint) Unilateral primary osteoarthriti s, left knee Sep- 0 [address], [place], [place], [id number], [place]. tel:[phone] Referring Provider: Shahid [address], [place], [place], [id number]. tel:[phone] [facility], [address], [place], [address], [place] tel:[phone] [facility] knee (chief complaint) Pain in right kneeUnilatera l primary osteoarthriti s, left knee Aug- 0 [address], [place], [place], [id number], [place]. tel:[phone] Referring Provider: Shahid [address], [place], [place], [id number]. tel:[phone] OFFICE/OUTPA TIENT VISIT, EST [facility], [address], [place], [address], [place] tel:[phone] [facility] knee (chief complaint) Pain in right knee Fe 7-202 0 Vic Erickson. [address], [place], [place], [id number], [place]. tel:[phone] Referring Provider: Darin Short, [address], [place], [address]. tel:[phone] OFFICE/OUTPA TIENT VISIT, EST [facility], [address], [place], [facility], [place] tel:[phone] [facility] knee (chief complaint) Pain in left kneeLong term (current) use of opiate analgesic 0-202 0 Vic Saucedo. [address], [place], [place], [id number], [place]. tel:[phone] Referring Provider: Shahid [address], [place], [place], [id number]. tel:[phone] OFFICE/OUTPA TIENT VISIT, EST [facility], [address], [place], [address], [place] tel:[phone] [facility] Knee (chief complaint) Pain in left knee 0-201 9 Sunil Wallis. [address], [place], [address], [place]. tel:[phone] Referring Provider: Shahid [address], [place], [place], [id number]. tel:[phone] OFFICE/OUTPA TIENT VISIT, EST [facility], [address], [place], [facility], [place] tel:[phone] [facility] Knee (chief complaint) Pain in left knee Nov- 9 Sunil Wallis. [address], [place], [address], [place]. tel:[phone] Referring Provider: Darin Short, [address] [facility], [place], [address]. tel:[phone] OFFICE/OUTPA TIENT VISIT, EST [facility], [address], [place], [facility], [place] tel:[phone] [facility] Knee (chief complaint) Pain in left knee Mar-3 9 Vic Saucedo. [address], [place], [place], [id number], [place]. tel:[phone] Referring Provider: Darin Short, [address] [facility], [place], [place], [facility]. tel:[phone] OFFICE/OUTPA TIENT VISIT, EST [facility], [address], [place], [facility], [place] tel:[phone] [facility] left knee pain (chief complaint) Pain in left kneeLong term (current) use of opiate analgesic Mar-0 9 Vic Erickson. [address], [place], [place], [id number], [place]. tel:[phone] Referring Provider: Darin Short, [address] [facility], [place], [place], [facility]. tel:[phone] [facility], [address], [place], [address], [place] tel:[phone] [facility] knee (chief complaint) Unilateral primary osteoarthriti s, left knee Sep-0 9 Vic Erickson. [address], [place], [place], [id number], [place]. tel:[phone] Referring Provider: Shahid P[address], [place], [place], [id number]. tel:[phone] [facility], [address], [place], [address], [place] tel:[phone] [facility] Specialists knee (chief complaint) Unilateral primary osteoarthriti s, left knee 9 Vic Erickson. [address], [place], [place], [address], [place]. tel:[phone] Referring Provider: Shahid [address], [place], [place], [id number]. tel:[phone] [facility], [address], [place], [address], [place] tel:[phone] [facility] knee (chief complaint) Unilateral primary osteoarthriti s, left knee 9 Vic Erickson. [address], [place], [place], [address], [place]. tel:[phone] Referring Provider: Shahid [address], [place], [id number]. tel:[phone] OFFICE/OUTPA TIENT VISIT, EST [facility], [address], [place], [address], [place] tel:[phone] [facility] Knee (chief complaint) Pain in left kneeLong term (current) use of opiate analgesic 9 Vic Saucedo. Sammie[address], [place], [place], [address], [place]. tel:[phone] Referring Provider: Darin Short, [address], [place], [address]. tel:[phone] [facility], [address], [place], [address], [place] tel:[phone] [facility] knee (chief complaint) Pain in left kneeUnilatera l primary osteoarthriti s, left knee 9 Vic [address], [id number], [place]. tel:[phone] Referring Provider: Shahid [address], [id number]. tel:[phone] OFFICE/OUTPA TIENT VISIT, EST [facility], [address], [place], [address], tel:[phone] [facility] Knee (chief complaint) Pain in left knee 9 New Riegel Natalee. [address], [address], [place], [address], [place]. tel:[phone] Referring Provider: Darin Short, [address], [place], [address]. tel:[phone] OFFICE/OUTPA TIENT VISIT, EST [facility], [address], [place], [address], tel:[phone] [facility] Knee (chief complaint) Pain in left knee 9 Joana Natalee. [address], [address], [place], [address], [place]. tel:[phone] Referring Provider: Darin Short, [address], [place], [address]. tel:[phone] OFFICE/OUTPA TIENT VISIT, EST [facility], [address], [place], [address], tel:[phone] [facility] Knee (chief complaint) Pain in left knee 9 [address], [id number], [place]. tel:[phone] Referring Provider: Darin Short, [address], [place], [address]. tel:[phone] [facility], [address], [place], [address], [place] tel:[phone] [facility] knee (chief complaint) Pain in left knee 9 [address], [id number], . tel:[phone] Referring Provider: Shahid [address], [place], [place], [address]. tel:[phone] OFFICE/OUTPA TIENT VISIT, EST [facility], [address], [place], [address], [place] tel:[phone] [facility] Follow Up of Knee Pain (chief complaint) Primary osteoarthriti s of left knee 8 Joana Natalee. [address], [address], [place], [address], [place]. tel:[phone] Referring Provider: Shahid [address], [place], [place], [id number]. tel:[phone] [facility], [address], [place], [address], [place] tel:[phone] [facility] knee (chief complaint) Pain in left kneeLong term (current) use of opiate analgesic 8 Vic Erickson. [address], [place], [place], [address], [place]. tel:[phone] Referring Provider: Darin Short, [address], [place], [address]. tel:[phone] [facility], [address], [place], [address], [place] tel:[phone] [facility] knee (chief complaint) Pain in left knee 8 Vic Erickson. [address], [place], [place], [address], [place]. tel:[phone] Referring Provider: Darin Short, [address] [place], [address]. tel:[phone] [facility], [address], [place], [address], [place] tel:[phone] [facility] Knee (chief complaint) Pain in left knee Sep- 8 Vic Erickson. [address], [place], [place], [id number], [place]. tel:[phone] Referring Provider: [address], [place], [address]. tel:[phone] OFFICE/OUTPA TIENT VISIT, EST [facility], [address], [place], [address], [place] tel:[phone] [facility] Knee (chief complaint) Pain in left knee 8 Vic Erickson. [address], [place], [place], [address], [place]. tel:[phone] Referring Provider: Darin Short, [address], [place], [address]. tel:[phone] OFFICE/OUTPA TIENT VISIT, EST [facility], [address], [place], [address], [place] tel:[phone] [facility] lower back (chief complaint) Spondylosis without myelopathy or radiculopathy , lumbosacral regionLong term (current) use of opiate analgesic 8 Vic Erickson. [address], [place], [place], [address], [place]. tel:[phone] Referring Provider: [address], [place], [address]. tel:[phone] OFFICE/OUTPA TIENT VISIT, EST [facility], [address], [place], [address], [place] tel:[phone] [facility] lower back (chief complaint) Other intervertebra l disc displacement, lumbar region 8 Vic Erickson. [address], [place], [place], [address], [place]. tel:[phone] Referring Provider: [address], [place], [address]. tel:[phone] OFFICE/OUTPA TIENT VISIT, EST [facility], [address], [place], [facility], tel:[phone] [facility] lower back pain equally on both sides (chief complaint) Other intervertebra l disc displacement, lumbar regionSpondyl osis without myelopathy or radiculopathy , lumbar regionSpondyl osis without myelopathy or radiculopathy , lumbosacral region October-2 9-201 8 [facility] [address], [place], [place], [address], . tel:[phone] Referring Provider: [address], [place], [facility]. tel:[phone] OFFICE/OUTPA TIENT VISIT, EST [facility], [address], [place], [facility], tel:[phone] [facility] Leg Pain (chief complaint) Knee Pain (chief complaint) Pain in right knee May-0 1-201 8 Furnish Jade. [address] [facility], [address], [place], [facility], [place]. tel:[phone] Referring Provider: [address] [place], [facility]. tel:[phone] OFFICE/OUTPA TIENT VISIT, EST [facility], [address], [place], [facility], tel:[phone] [facility] Leg Pain (chief complaint) Knee Pain (chief complaint) Other intervertebra l disc displacement, lumbar regionLong term (current) use of opiate analgesic Apr-0 3-201 8 Furnish Jade. [address] [facility], [address], [place], [address], [place]. tel:[phone] Referring Provider: [place], [address]. tel:[phone] OFFICE/OUTPA TIENT VISIT, EST [facility], [address], [place], [address], [place] tel:[phone] [facility] Leg Pain (chief complaint) Knee Pain (chief complaint) Other intervertebra l disc displacement, lumbar region 0 7-201 8 Vic Fisher [address], [place], [place], [address], [place]. tel:[phone] Referring Provider: [address], [place], [address]. tel:[phone] OFFICE/OUTPA TIENT VISIT, EST [facility], [address], [place], [facility], [place] tel:[phone] [facility] Leg Pain (chief complaint) Knee Pain (chief complaint) Other intervertebra l disc displacement, lumbar region Fe0 8-201 8 Vic Erickson. [address], [place], [address], [place]. tel:[phone] Referring Provider: [address], [place], [address]. tel:[phone] OFFICE/OUTPA TIENT VISIT, EST [facility], [address], [place], [facility], tel:[phone] [facility] Leg Pain (chief complaint) Knee Pain (chief complaint) terminal operator (current) use of opiate analgesicOthe r intervertebra l disc displacement, lumbar region 2-201 8 Vic Erickson. [address], [place], [place], [address], [place]. tel:[phone] Referring Provider: [address], [place], [facility]. tel:[phone] OFFICE/OUTPA TIENT VISIT, EST [facility], [address], [place], [address], [place] tel:[phone] [facility] Leg Pain (chief complaint) Knee Pain (chief complaint) Pain in left kneeRadiculop athy, lumbosacral region Vic Erickson. [address], [place], [place], [address], [place]. tel:[phone] Referring Provider: Darin Short, [address], [place], [address]. tel:[phone] [facility], [address], [place], [facility], tel:[phone] [facility] Knee Pain (chief complaint) Pain in left knee Vic Erickson. [address], [place], [address], [place]. tel:[phone] Referring Provider: Darin Short, [address], [place], [address]. tel:[phone] OFFICE/OUTPA TIENT VISIT, EST [facility], [address], [place], [facility], tel:[phone] [facility] Pain in left kneeOther intervertebra l disc displacement, lumbar region Joana Albright. [address], [address], [place], [address], [place]. tel:[phone] Referring Provider: Darin Short, [address], [place], [address]. tel:[phone] [facility], [address], [place], [facility], [place] tel:[phone] [facility] Knee Pain (chief complaint) Pain in left kneeLong term (current) use of opiate analgesic Vic Erickson. [address], [place], [place], [address], [place]. tel:[phone] Referring Provider: Darin Short, [address], [place], [address]. tel:[phone] OFFICE/OUTPA TIENT VISIT, EST [facility], [address], [place], [address], [place] tel:[phone] [facility] Knee Pain (chief complaint) Pain in left knee Vic Fisher [address], [place], [place], [address], [place]. tel:[phone] Referring Provider: Darin Short, [address], [place], [address]. tel:[phone] OFFICE/OUTPA TIENT VISIT, EST [facility], [address], [place], [address], [place] tel:[phone] [facility] Low Back Pain (chief complaint) Other intervertebra l disc displacement, lumbar region Vic Fisher [address], [place], [place], [address], [place]. tel:[phone] Referring Provider: Darin Short, [address], [place], [address]. tel:[phone] OFFICE/OUTPA TIENT VISIT, EST [facility], [address], [place], [address], [place] tel:[phone] [facility] Low Back Pain (chief complaint) Spondylosis without myelopathy or radiculopathy , lumbar regionLong term (current) use of opiate analgesic Vic Fisher [address], [place], [place], [address], [place]. tel:[phone] Referring Provider: Darin Short, [address], [place], [address]. tel:[phone] OFFICE/OUTPA TIENT VISIT, EST [facility], [address], [place], [address], [place] tel:[phone] [facility] Low Back Pain (chief complaint) Other intervertebra l disc displacement, lumbar regionRadicul opathy, lumbosacral regionSpondyl osis without myelopathy or radiculopathy , lumbar region May-2 7 Furnish Jade. [address] [facility], [address], [place], [facility], . tel:[phone] Referring Provider: Darin Short, [address], [place], [facility]. tel:[phone] OFFICE/OUTPA TIENT VISIT, EST [facility], [address], [place], [facility], tel:[phone] [facility] Low Back Pain (chief complaint) Knee Pain (chief complaint) Other intervertebra l disc displacement, lumbar regionRadicul opathy, lumbosacral regionPain in right kneePain in left knee Apr- 7 Furnish Jade. [address] [facility], [address], [place], [facility], . tel:[phone] Referring Provider: Darin Short, [address], [place], [facility]. tel:[phone] OFFICE/OUTPA TIENT VISIT, EST [facility], [address], [place], [facility], tel:[phone] [facility] Low Back Pain (chief complaint) Knee Pain (chief complaint) Other intervertebra l disc displacement, lumbar regionPain in left kneePain in right kneeLong term (current) use of opiate analgesic Aug-2 7 Furnish Jade. [address] [facility], [address], [place], [facility], . tel:[phone] Referring Provider: Darin Short, [address], [place], [facility]. tel:[phone] OFFICE/OUTPA TIENT VISIT, EST [facility], [address], [place], [facility], tel:[phone] [facility] Low Back Pain (chief complaint) Other intervertebra l disc displacement, lumbar region Mar-0 - 7 Vic Erickson. [address], [place], [place], [address], [place]. tel:[phone] Referring Provider: [address], [place], [address]. tel:[phone] OFFICE/OUTPA TIENT VISIT, EST [facility], [address], [place], [facility], tel:[phone] [facility] Low Back Pain (chief complaint) Other intervertebra l disc displacement, lumbar region Fe Vic Erickson. [address], [place], [place], [address], [place]. tel:[phone] Referring Provider: [address], [place], [facility]. tel:[phone] OFFICE/OUTPA TIENT VISIT, EST [facility], [address], [place], [facility], tel:[phone] [facility] Low Back Pain (chief complaint) Other intervertebra l disc displacement, lumbar region [facility]. [address] [place], [address], [place], [facility], . tel:[phone] Referring Provider: [address], [place], [address]. tel:[phone] OFFICE/OUTPA TIENT VISIT, EST [facility], [address], [place], [facility], [place] tel:[phone] [facility] Knee Pain (chief complaint) Pain in left kneeLong term (current) use of opiate analgesic 6 Vic Erickson. [address], [place], [place], [address], [place]. tel:[phone] Referring Provider: [address], [place], [facility]. tel:[phone] OFFICE/OUTPA TIENT VISIT, EST [facility], [address], [place], [address], [place] tel:[phone] [facility] Knee Pain (chief complaint) Pain in left knee 0-201 6 [facility]. [address] [place], [address], [place], [address], [place]. tel:[phone] Referring Provider: Darin Short, [address] [place], [address]. tel:[phone] [facility], [address], [place], [address], [place] tel:[phone] [facility] Knee Pain (chief complaint) Pain in left knee 1-201 6 Vic Erickson. [address], [place], [address], [place]. tel:[phone] Referring Provider: Darin Short, [address] [place], [address]. tel:[phone] OFFICE/OUTPA TIENT VISIT, EST [facility], [address], [place], [address], [place] tel:[phone] [facility] Knee Pain (chief complaint) Pain in left knee Mar-0 5-201 6 Vic Erickson. [address], [place], [place], [address], [place]. tel:[phone] Referring Provider: Darin Short, [address] [place], [address]. tel:[phone] [facility], [address], [place], [address], [place] tel:[phone] [facility] Knee Pain (chief complaint) Pain in left knee 3 0-201 6 Vic Erickson. [address], [place], [address], [place]. tel:[phone] Referring Provider: Darin Short, [address] [place], [address]. tel:[phone] [facility], [address], [place], [facility], tel:[phone] [facility] Knee Pain (chief complaint) jail (current) use of opiate analgesic Aug-0 3-201 6 Vic Erickson. [address], [place], [address], [place]. tel:[phone] Referring Provider: Darin Short, [address], [place], [facility]. tel:[phone] OFFICE/OUTPA TIENT VISIT, EST [facility], [address], [place], [facility], tel:[phone] [facility] Low Back Pain (chief complaint) Knee Pain (chief complaint) Pain in left kneeOther intervertebra l disc displacement, lumbar regionSpondyl osis without myelopathy or radiculopathy , lumbar region Cr-0 8-201 6 Vic Erickson. [address], [place], [place], [address], [place]. tel:[phone] Referring Provider: Darin Short, [address], [place], [facility]. tel:[phone] OFFICE/OUTPA TIENT VISIT, EST [facility], [address], [place], [facility], tel:[phone] [facility] Knee Pain (chief complaint) Pain in left kneePain in right knee Qamar-0 9-201 6 Shravan Gauthier. [address], [place], [address]. tel:[phone] Referring Provider: Darin Short, [address], [place], [facility]. tel:[phone] OFFICE/OUTPA TIENT VISIT, EST [facility], [address], [place], [facility], tel:[phone] [facility] Low Back Pain (chief complaint) Radiculopathy , lumbosacral region Apr-2 9-201 6 Furnish Jade. [address] [place], [address], [place], [facility], . tel:[phone] Referring Provider: Darin Short, [address], [place], [facility]. tel:[phone] OFFICE/OUTPA TIENT VISIT, EST [facility], [address], [place], [facility], tel:[phone] [facility] Low Back Pain (chief complaint) Radiculopathy , lumbosacral region Apr-0 1-201 6 Furnish Jade. [address] [place], [address], [place], [facility], . tel:[phone] Referring Provider: Darin Short, [address] [facility], [place], [facility]. tel:[phone] OFFICE/OUTPA TIENT VISIT, EST [facility], [address], [place], [facility], tel:[phone] [facility] Low Back Pain (chief complaint) Radiculopathy , lumbosacral regionLong term (current) use of opiate analgesic Mar-0 4-201 6 Furnish Jade. [address] [place], [address], [place], [facility], . tel:[phone] Referring Provider: Darin Short, [address] [place], [facility]. tel:[phone] OFFICE/OUTPA TIENT VISIT, EST [facility], [address], [place], [facility], tel:[phone] [facility] Low Back Pain (chief complaint) Radiculopathy , lumbosacral region Feb-1 0-201 6 [place] Kulwinder. [address], [place], [place], [id number]. tel:[phone] Referring Provider: Darin Short, [address], [place], [facility]. tel:[phone] OFFICE/OUTPA TIENT VISIT, EST [facility], [address], [place] [address], tel:[phone] [facility] Knee Pain (chief complaint) SCREENING FOR DEPRESSIONPai n in right kneePain in left knee 6 Shravan Gatuhier. [address], [place] [address]. tel:[phone] Referring Provider: Darin Short, [address], [place], [facility]. tel:[phone] OFFICE/OUTPA TIENT VISIT, EST [facility], [address], [place] [address], tel:[phone] [facility] Knee Pain (chief complaint) Pain in left knee 5 Shravan Gauthier. [address], [place] [address]. tel:[phone] Referring Provider: Darin Short, [address], [place], [facility]. tel:[phone] [facility], [address], [place] [address], tel:[phone] [facility] Knee Pain (chief complaint) Pain in left knee 5 Shravan Gauthier. [address], [place] [address]. tel:[phone] Referring Provider: Darin Short, [address], [place], [facility]. tel:[phone] [facility], [address], [place] [address], tel:[phone] [facility] Knee Pain (chief complaint) Pain in right kneeLong term (current) use of opiate analgesic 5 Shravan Gauthier. [address], [place] [address]. tel:[phone] Referring Provider: Darin Short, [address] [place], [facility]. tel:[phone] [facility], [address], [place] [address], tel:[phone] [facility] Knee Pain (chief complaint) Knee Pain Sep- 1 5 Shravan Gauthier. [address], [place] [address]. tel:[phone] Referring Provider: Darin Short, [address] [place], [facility]. tel:[phone] [facility], [address], [place] [address], tel:[phone] [facility] Knee Pain (chief complaint) ENTHESOPATHY OF KNEE NOS 8 5 Shravan Gauthier. [address], [place] [address]. tel:[phone] Referring Provider: Darin Short, [address] [place], [facility]. tel:[phone] OFFICE/OUTPA TIENT VISIT, EST [facility], [address], [place] [address], tel:[phone] [facility] Knee Pain (chief complaint) Therapeutic Drug MonitoringOst eoarthritis knee Dec- 0-201 5 Shravan Gauthier. [address], [place] [address]. tel:[phone] Referring Provider: Darin Short, [address] [place], [facility]. tel:[phone] OFFICE/OUTPA TIENT VISIT, EST [facility], [address], [place] [address], tel:[phone] [facility] Low Back Pain (chief complaint) Knee Pain (chief complaint) TOBACCO USE DISORDERRadic ulopathyHerni ated DiscLumbo/sac ral ArthritisSacr oiliitisOsteo arthritis knee Cr-0 2-201 5 Shravan Gauthier. [address], [place] [address]. tel:[phone] Referring Provider: Darin Short, [address] [facility], [place], [place], [facility]. tel:[phone] OFFICE/OUTPA TIENT VISIT, EST [facility], [address], [place] [address], tel:[phone] [facility] Low Back Pain (chief complaint) Herniated Disc Qamar-0 2-201 5 Shravan Gauthier. [address], [place] [address]. tel:[phone] Referring Provider: Darin Short, [address] [facility], [place], [place], [facility]. tel:[phone] OFFICE/OUTPA TIENT VISIT, EST [facility], [address], [place] [address], tel:[phone] [facility] Low Back Pain (chief complaint) Herniated DiscLumbo/sac ral ArthritisRadi culopathy May-0 4-201 5 Shravan Gauthier. [address], [place] [address]. tel:[phone] Referring Provider: Darin Short, [address] [facility], [place], [place], [facility]. tel:[phone] [facility], [address], [place] [address], tel:[phone] [facility] No Information Apr-2 9-201 5 Shravan Gauthier. [address], [place] [address]. tel:[phone] Referring Provider: Darin Short, [address] [facility], [place], [facility]. tel:[phone] OFFICE/OUTPA TIENT VISIT, EST [facility], [address], [place] [id number], tel:[phone] [facility] Low Back Pain (chief complaint) Lumbo/sacral Arthritis 5 Shravan Gauthier. [address], [place], [place], [facility]. tel:[phone] Referring Provider: Darin Short, [address], [place], [facility]. tel:[phone] OFFICE/OUTPA TIENT VISIT, EST [facility], [address], [place], [facility], tel:[phone] [facility] Low Back Pain (chief complaint) Herniated DiscLumbo/sac ral ArthritisRadi culopathy 5 Shravan Gauthier. [address], [place], [facility]. tel:[phone] Referring Provider: Darin Short, [address] [place], [facility]. tel:[phone] OFFICE/OUTPA TIENT VISIT, EST [facility], [address], [place], [facility], tel:[phone] [facility] Low Back Pain (chief complaint) Herniated DiscLumbo/sac ral ArthritisRadi culopathy Fe 5 Shravan Gauthier. [address], [place], [facility]. tel:[phone] Referring Provider: Darin Short, [address] [place], [facility]. tel:[phone] OFFICE/OUTPA TIENT VISIT, EST [facility], [address], [place] [address], tel:[phone] [facility] Low Back Pain (chief complaint) Degenerative Disc DiseaseHernia jennifer DiscRadiculop athy 5 Shravan Gauthier. [address], [place], [facility]. tel:[phone] Referring Provider: Darin Short, [address], [place], [address]. tel:[phone] OFFICE/OUTPA TIENT VISIT, EST [facility], [address], [place], [facility], tel:[phone] [facility] Low Back Pain (chief complaint) Herniated DiscLumbo/sac ral ArthritisRadi culopathyTher apeutic Drug Monitoring 4 Shravan Gauthier. [address], [place], [address]. tel:[phone] Referring Provider: Darin Short, [address], [place], [address]. tel:[phone] OFFICE/OUTPA TIENT VISIT, EST [facility], [address], [place], [facility], tel:[phone] [facility] Low Back Pain (chief complaint) Lumbo/sacral ArthritisHern iated DiscDegenerat ryan Disc Disease 4 Shravan Gauthier. [address], [place], [address]. tel:[phone] Referring Provider: Darin Short, [address], [place], [address]. tel:[phone] OFFICE/OUTPA TIENT VISIT, EST [facility], [address], [place], [facility], tel:[phone] [facility] Low Back Pain (chief complaint) Knee Pain (chief complaint) Herniated DiscKnee Pain 4 Samantha Miramontes. [address], [place], [place], [id number]. tel:[phone] Referring Provider: Darin Short, [address], [place], [facility]. tel:[phone] OFFICE/OUTPA TIENT VISIT, EST [facility], [address], [place], [facility], tel:[phone] [facility] Low Back Pain (chief complaint) Herniated Disc W/Myopathy 4 No Information Referring Provider: Darin Short, [address], [place], [address]. tel:[phone] OFFICE/OUTPA TIENT VISIT, EST [facility], [address], [place], [facility], tel:[phone] [facility] Low Back Pain (chief complaint) Herniated Disc Mar-2 4 No Information Referring Provider: Darin Short, [address], [place], [address]. tel:[phone] OFFICE/OUTPA TIENT VISIT, EST [facility], [address], [place], [facility], tel:[phone] [facility] Low Back Pain (chief complaint) Herniated DiscRadiculop athy 4 Shravan Gauthier. [address], [place] [address]. tel:[phone] Referring Provider: Darin Short, [address], [place], [facility]. tel:[phone] OFFICE/OUTPA TIENT VISIT, EST [facility], [address], [place], [facility], tel:[phone] [facility] Low Back Pain (chief complaint) Herniated Disc 4 Shravan Gauthier. [address], [place] [address]. tel:[phone] Referring Provider: Darin Short, [address], [place], [address]. tel:[phone] OFFICE/OUTPA TIENT VISIT, EST [facility], [address], [place], [facility], tel:[phone] [facility] Low Back Pain (chief complaint) Herniated Disc 4 Nikolas Rivera. [address], [place], [place], [id number], [place]. tel:[phone] Referring Provider: Darin Short, [address], [place], [facility]. tel:[phone] OFFICE/OUTPA TIENT VISIT, EST [facility], [address], [place], [facility], tel:[phone] [facility] Low Back Pain (chief complaint) Herniated DiscRadiculop athy Qamar-0 6-201 4 Shravan Gauthier. [address], [place], [facility]. tel:[phone] Referring Provider: Darin Short, [address] [place], [facility]. tel:[phone] OFFICE/OUTPA TIENT VISIT, EST [facility], [address], [place], [facility], tel:[phone] [facility] Low Back Pain (chief complaint) Herniated Disc October-0 9201 4 Cheney Abrahan. [address], [place], [facility]. tel:[phone] Referring Provider: Darin Short, [address] [place], [facility]. tel:[phone] OFFICE/OUTPA TIENT VISIT, EST [facility], [address], [place], [facility], tel:[phone] [facility] Low Back Pain (chief complaint) Herniated Disc Apr-1 1-201 4 Nikolas Rivera. [address], [place], [place], [id number], [place]. tel:[phone] Referring Provider: Darin Short, [address] [place], [facility]. tel:[phone] OFFICE/OUTPA TIENT VISIT, EST [facility], [address], [place], [address], tel:[phone] [facility] Low Back Pain (chief complaint) Herniated Disc 4 [place] Kulwinder. [address], [place], [place], [id number]. tel:[phone] Referring Provider: Darin Short, [address], [place], [address]. tel:[phone] OFFICE/OUTPA TIENT VISIT, EST [facility], [address], [place], [address], tel:[phone] [facility] Low Back Pain (chief complaint) Lumbo/sacral ArthritisTher apeutic Drug Monitoring 4 [place] Kulwinder. [address], [place], [place], [id number]. tel:[phone] Referring Provider: Darin Short, [address], [place], [address]. tel:[phone] OFFICE/OUTPA TIENT VISIT, EST [facility], [address], [place], [address], tel:[phone] [facility] Low Back Pain (chief complaint) SacroiliitisL umbo/sacral ArthritisHern iated DiscHerniated Disc W/MyopathyDeg enerative Disc DiseaseRadicu lopathy 4 Shravan Gauthier. [address], [place], [address]. tel:[phone] Referring Provider: Darin Short, [address], [place], [address]. tel:[phone] OFFICE/OUTPA TIENT VISIT, EST [facility], [address], [place], [address], tel:[phone] [facility] Low Back Pain (chief complaint) Degenerative Disc Disease 3 [place] Kulwinder. [address], [place], [place], [id number]. tel:[phone] Referring Provider: Darin Short [address], [place], [address]. tel:[phone] OFFICE/OUTPA TIENT VISIT, EST [facility], [address], [place], [facility], tel:[phone] [facility] low back pain (chief complaint) Lumbo/sacral ArthritisKnee Pain Nov- 3-201 3 Shravan Gauthier. [address], [place], [address]. tel:[phone] Referring Provider: Darin Short, [address], [place], [address]. tel:[phone] OFFICE/OUTPA TIENT VISIT, EST [facility], [address], [place], [facility], tel:[phone] [facility] low back pain (chief complaint) Lumbo/sacral Arthritis 6201 3 Samantha Mir[address]ont[address]. [address], [place], [place], [id number]. tel:[phone] Referring Provider: Darin Short, [address], [place], [address]. tel:[phone] OFFICE/OUTPA TIENT VISIT, EST [facility], [address], [place], [facility], tel:[phone] [facility] low back pain (chief complaint) Lumbo/sacral Arthritis Sep- 8-201 3 Shravan Gauthier. [address], [place], [address]. tel:[phone] Referring Provider: Darin Short, [address], [place], [address]. tel:[phone] OFFICE/OUTPA TIENT VISIT, EST [facility], [address], [place], [facility], tel:[phone] [facility] Lumbo/sacral Arthritis Aug- 0-201 3 Shravan Gauthier. [address], [facility] [place], [address]. tel:[phone] Referring Provider: Darin Short, [address] [place], [facility]. tel:[phone] OFFICE/OUTPA TIENT VISIT, EST [facility], [address], [place], [facility], tel:[phone] [facility] Lumbo/sacral Arthritis 3 Shravan Gauthier. [address], [place] [address]. tel:[phone] Referring Provider: Darin Short, [address] [place], [facility]. tel:[phone] OFFICE/OUTPA TIENT VISIT, EST [facility], [address], [place] [address], tel:[phone] [facility] DepressionLum elsy/sacral Arthritis 3 Shravan Gauthier. [address], [place] [address]. tel:[phone] Referring Provider: Darin Short, [address] [place], [facility]. tel:[phone] [facility], [address], [place], [facility], tel:[phone] [facility] No Information 3 Shravan Gauthier. [address], [place] [address]. tel:[phone] Referring Provider: Darin Short, [address] [place], [facility]. tel:[phone] OFFICE/OUTPA TIENT VISIT, EST [facility], [address], [place] [address], tel:[phone] [facility] low back pain (chief complaint) leg pain (chief complaint) Lumbo/sacral Arthritis 3 Shravan Gauthier. [address], [place], [facility]. tel:[phone] Referring Provider: Darin Short, [address], [place], [facility]. tel:[phone] [facility], [address], [place], [facility], tel:[phone] [facility] Radiculopathy 5201 3 Shravan Gauthier. [address], [place], [facility]. tel:[phone] Referring Provider: Darin Short, [address], [place], [facility]. tel:[phone] OFFICE/OUTPA TIENT VISIT, EST [facility], [address], [place], [facility], tel:[phone] [facility] Herniated Disc 2 3 Shravan Gauthier. [address], [place], [facility]. tel:[phone] Referring Provider: Darin Short, [address], [place], [facility]. tel:[phone] OFFICE/OUTPA TIENT VISIT, EST [facility], [address], [place], [facility], tel:[phone] [facility] Herniated Disc 3 Samantha Miramont[address]. [address], [place], [place], [id number]. tel:[phone] Referring Provider: Darin Short, [address] [place], [facility]. tel:[phone] OFFICE/OUTPA TIENT VISIT, EST [facility], [address], [place], [address], [place] tel:[phone] [facility] Herniated Disc 7 3 Nikolas Rivera. [address], [place], [place], [id number], [place]. tel:[phone] Referring Provider: Darin Short, [address], [place], [facility]. tel:[phone] OFFICE/OUTPA TIENT VISIT, EST [facility], [address], [place], [facility], tel:[phone] [facility] Herniated Disc Dec- 2 Cheney Abrahan. [address], [place], [facility]. tel:[phone] Referring Provider: Darin Short, [address], [place], [facility]. tel:[phone] OFFICE/OUTPA TIENT VISIT, EST [facility], [address], [place], [facility], tel:[phone] [facility] Herniated Disc Nov- 2 Shravan Gauthier. [address], [place], [facility]. tel:[phone] Referring Provider: Darin Short, [address], [place], [facility]. tel:[phone] OFFICE/OUTPA TIENT VISIT, EST [facility], [address], [place], [facility], tel:[phone] [facility] Herniated Disc Oct- 2 Cheney Abrahan. [address], [place], [facility]. tel:[phone] Referring Provider: Darin Short, [address] [place], [facility]. tel:[phone] OFFICE/OUTPA TIENT VISIT, EST [facility], [address], [place], [facility], tel:[phone] [facility] Herniated Disc Sep-07 04- 2 Shravan Gauthier. [address], [place], [address]. tel:[phone] Referring Provider: Darin Short, [address], [place], [address]. tel:[phone] OFFICE/OUTPA TIENT VISIT, EST [facility], [address], [place], [facility], tel:[phone] [facility] Herniated Disc 2 [place] Kulwinder. [address], [place], [place], [id number]. tel:[phone] Referring Provider: Darin Short, [address] , [place], [address]. tel:[phone] [facility], [address], [place], [facility], tel:[phone] [facility] Knee Pain 2 Shravan Gauthier. [address], [place], [facility]. tel:[phone] Referring Provider: Darin Short, [address], [place], [address]. tel:[phone] [facility], [address], [place], [facility], tel:[phone] [facility] No Information 2 Shravan Gauthier. [address], [place], [address]. tel:[phone] Referring Provider: Darin Short, [address], [place], [address]. tel:[phone] OFFICE/OUTPA TIENT VISIT, EST [facility], [address], [place], [facility], tel:[phone] [facility] Herniated Disc 2 Shravan Gauthier. [address], [place], [address]. tel:[phone] Referring Provider: Darin Short, [address], [place], [facility]. tel:[phone] OFFICE/OUTPA TIENT VISIT, EST [facility], [address], [place], [facility], tel:[phone] [facility] Herniated Disc 3-201 2 Shravan Gauthier. [address], [place] [address]. tel:[phone] Referring Provider: [address] [place], [facility]. tel:[phone] [facility], [address], [place], [facility], tel:[phone] [facility] No Information 6201 2 Shravan Gauthier. [address], [place] [address]. tel:[phone] Referring Provider: [address] [place], [facility]. tel:[phone] OFFICE/OUTPA TIENT VISIT, EST [facility], [address], [place], [facility], tel:[phone] [facility] Herniated DiscSacroilii tisLumbo/sacr al Arthritis 8201 2 Shravan Gauthier. [address], [place] [address]. tel:[phone] Referring Provider: [address] [place], [facility]. tel:[phone] OFFICE/OUTPA TIENT VISIT, EST [facility], [address], [place] [address], tel:[phone] [facility] Herniated Disc W/MyopathySac roiliitisLumb o/sacral Arthritis 0-201 2 Shravan Gauthier. [address], [place] [address]. tel:[phone] Referring Provider: [address], [place], [address]. tel:[phone] OFFICE/OUTPA TIENT VISIT, EST [facility], [address], [place], [facility], tel:[phone] [facility] Herniated Disc W/MyopathySac roiliitisLumb o/sacral Arthritis Dec-2 7 1 Nikolas Rivera. [address], [place], [place], [id number], . tel:[phone] Referring Provider: Darin Short, [address], [place], [address]. tel:[phone] OFFICE/OUTPA TIENT VISIT, EST [facility], [address], [place], [facility], tel:[phone] [facility] Herniated Disc W/MyopathySac roiliitisLumb o/sacral Arthritis Dec-0 6 1 Shravan Gauthier. [address], [place], [address]. tel:[phone] Referring Provider: Darin Short, [address], [place], [facility]. tel:[phone] OFFICE/OUTPA TIENT VISIT, EST [facility], [address], [place], [facility], tel:[phone] [facility] Herniated Disc W/MyopathySac roiliitisLumb o/sacral Arthritis Dec-0 1- 1 Shravan Gauthier. [address], [place], [address]. tel:[phone] Referring Provider: Darin Short, [address], [place], [facility]. tel:[phone] OFFICE/OUTPA TIENT VISIT, EST [facility], [address], [place], [facility], [place] tel:[phone] [facility] No Information Nov-0 2-201 1 Shravan Gauthier. [address], [place], [facility]. tel:[phone] Referring Provider: Darin Short, [address], [place], [facility]. tel:[phone] OFFICE/OUTPA TIENT VISIT, EST [facility], [address], [place], [facility], tel:[phone] [facility] No Information Oct-0 4 1 Shravan Gauthier. [address], [place], [facility]. tel:[phone] Referring Provider: Darin Short, [address], [place], [facility]. tel:[phone] OFFICE/OUTPA TIENT VISIT, EST [facility], [address], [place] [address], tel:[phone] [facility] Lumbo/sacral ArthritisSacr oiliitis, not elsewhere classifiedLum elsy/sacral Arthritis Sep-0 8 1 Shravan Gauthier. [address], [place], [facility]. tel:[phone] Referring Provider: Darin Short, [address], [place], [facility]. tel:[phone] OFFICE/OUTPA TIENT VISIT, EST [facility], [address], [place], [facility], tel:[phone] [facility] Lumbo/sacral ArthritisSacr oiliitis, not elsewhere classifiedLum esly/sacral Arthritis Aug- 2 1 Shravan Gauthier. [address], [place] [address]. tel:[phone] Referring Provider: Darin Short, [address] [place], [facility]. tel:[phone] OFFICE/OUTPA TIENT VISIT, EST [facility], [address], [place], [facility], [place] tel:[phone] [facility] Lumbo/sacral ArthritisSacr oiliitis, not elsewhere classifiedLum elsy/sacral Arthritis 1 Nikolas Rivera. [address], [place], [place], [id number], [place]. tel:[phone] Referring Provider: Darin Short, [address], [place], [address]. tel:[phone] OFFICE/OUTPA TIENT VISIT, EST [facility], [address], [place], [address], [place] tel:[phone] [facility] Lumbo/sacral ArthritisSacr oiliitis, not elsewhere classifiedLum elsy/sacral Arthritis 1 Nikolas Rivera. [address], [place], [place], [id number], [place]. tel:[phone] Referring Provider: Darin Short, [address], [place], [address]. tel:[phone] OFFICE/OUTPA TIENT VISIT, EST [facility], [address], [place], [facility], [place] tel:[phone] [facility] Lumbo/sacral ArthritisSacr oiliitis, not elsewhere classifiedLum elsy/sacral Arthritis 1 Nikolas Rivera. [address], [place], [place], [id number], [place]. tel:[phone] Referring Provider: Darin Short, [address], [place], [address]. tel:[phone] OFFICE/OUTPA TIENT VISIT, EST [facility], [address], [place], [place], [facility], [place] tel:[phone] [facility] Lumbo/sacral ArthritisSacr oiliitis, not elsewhere classifiedLum elsy/sacral Arthritis Sep- 1 Shravan Gauthier. [address], [place], [address]. tel:[phone] Referring Provider: Darin Short, [address], [place], [address]. tel:[phone] OFFICE/OUTPA TIENT VISIT, EST [facility], [address], [place], [facility], tel:[phone] [facility] Lumbo/sacral ArthritisSacr oiliitis, not elsewhere classifiedLum elsy/sacral Arthritis 1 Nikolas Rivera. [address], [place], [place], [id number], . tel:[phone] Referring Provider: Darin Short, [address], [place], [place], [facility]. tel:[phone] OFFICE/OUTPA TIENT VISIT, EST [facility], [address], [place], [facility], tel:[phone] [facility] Lumbo/sacral ArthritisSacr oiliitis, not elsewhere classifiedLum elsy/sacral Arthritis 1 Shravan Gauthier. [address], [place], [place], [facility]. tel:[phone] Referring Provider: Darin Short, [address], [place], [facility]. tel:[phone] OFFICE/OUTPA TIENT VISIT, EST [facility], [address], [place], [facility], tel:[phone] [facility] Lumbo/sacral ArthritisSacr oiliitis, not elsewhere classifiedLum elsy/sacral Arthritis 1 Shravan Gauthier. [address], [place], [facility]. tel:[phone] Referring Provider: Darin Short, [address] , [place], [facility]. tel:[phone] OFFICE/OUTPA TIENT VISIT, EST [facility], [address], [place], [facility], [place] tel:[phone] [facility] No Information Dec-2 9-201 0 Shravan Gauthier. [address], [place], [facility]. tel:[phone] Referring Provider: Darin Short, [address], [place], [address]. tel:[phone] OFFICE/OUTPA TIENT VISIT, EST [facility], [address], [place], [facility], tel:[phone] [facility] Lumbo/sacral ArthritisSacr oiliitis, not elsewhere classifiedLum elsy/sacral Arthritis Dec-0 2-201 0 Cheneymt Gauthier. [address], [place], [facility]. tel:[phone] Referring Provider: Darin Short, [address] , [place], [facility]. tel:[phone] OFFICE/OUTPA TIENT VISIT, EST [facility], [address], [place], [facility], tel:[phone] [facility] Lumbo/sacral ArthritisSacr oiliitis, not elsewhere classifiedLum elsy/sacral Arthritis Nov-0 4-201 0 Shravan Gauthier. [address], [place], [facility]. tel:[phone] Referring Provider: Darin Short, [address], [place], [facility]. tel:[phone] OFFICE/OUTPA TIENT VISIT, EST [facility], [address], [place], [facility], tel:[phone] [facility] No Information Oct-0 7-201 0 Shravan Gauthier. [address], [place], [facility]. tel:[phone] Referring Provider: Darin Short, [address] , [place], [facility]. tel:[phone] OFFICE/OUTPA TIENT VISIT, EST [facility], [address], [place], [address], [place] tel:[phone] [facility] No Information 0 Shravan Gauthier. [address], [place], [address]. tel:[phone] Referring Provider: aDrin Short, [address], [place], [address]. tel:[phone] OFFICE/OUTPA TIENT VISIT, EST [facility], [address], [place], [address], [place] tel:[phone] [facility] No Information 0 Timur Walsh. [address] [facility], [address], [place], [address], [place]. tel:[phone] OFFICE/OUTPA TIENT VISIT, EST [facility], [address], [place], [facility], [place] tel:[phone] [facility] No Information 0 Timur Walsh. [address], [address], [place], [place], [facility], [place]. tel:[phone] Referring Provider: Darin Short, [address] , [place], [address]. tel:[phone] OFFICE/OUTPA TIENT VISIT, EST [facility], [address], [place], [facility], [place] tel:[phone] [facility] No Information 0 Timur Walsh. [address], [address], [place], [address], [place]. tel:[phone] Referring Provider: Darin Short, [address] , [place], [address]. tel:[phone] OFFICE/OUTPA TIENT VISIT, EST [facility], [address], [place], [address], [place] tel:[phone] [facility] No Information 0 Timur Walsh. [address], [address], [place], [facility], [place]. tel:[phone] Referring Provider: Darin Short, [address], [place], [address]. tel:[phone] OFFICE/OUTPA TIENT VISIT, EST [facility], [address], [place], [facility], tel:[phone] [facility] No Information 0 Timur Walsh. [address], [address] [place] [address], [facility], [place]. tel:[phone] Referring Provider: Darin Short, [address], [place], [facility]. tel:[phone] OFFICE/OUTPA TIENT VISIT, EST [facility], [address], [place], [facility], [place] tel:[phone] [facility] No Information 0 Timur Walsh. [address] [facility], [address], [place], [facility], [place]. tel:[phone] Referring Provider: Darin Shotr, [address], [place], [address]. tel:[phone] OFFICE/OUTPA TIENT VISIT, EST [facility], [address], [place], [facility], [place] tel:[phone] [facility] No Information 0 0 Timur Walsh. [address] [facility], [address], [place], [facility], [place]. tel:[phone] Referring Provider: Darin Short, [address], [place], [address]. tel:[phone] OFFICE/OUTPA TIENT VISIT, EST [facility], [address], [place], [facility], [place] tel:[phone] [facility] No Information Feb-0 5-201 0 Timur Childs [address], [place], [facility], [place]. tel:[phone] Referring Provider: Darin Short, [address], [place], [address]. tel:[phone] OFFICE/OUTPA TIENT VISIT, EST [facility], [address], [place], [facility], [place] tel:[phone] [facility] No Information Chandu-0 6-201 0 Timur Patel [address], [address], [place], [facility], [place]. tel:[phone] [facility], [address], [place], [facility], [place] tel:[phone] [facility] No Information Dec-1 4-200 9 Timur Childs [address], [address], [place], [facility], [place]. tel:[phone] Referring Provider: Darin Short, [address], [place], [facility]. tel:[phone] [facility], [address], [place], [facility], [place] tel:[phone] [facility] No Information Dec-0 2-[address], [place], [address], [place]. tel:[phone] Referring Provider: Darin Short, [address], [place], [address]. tel:[phone] [facility], [address], [place], [facility], [place] tel:[phone] [facility] Radiculopathy Nov-0 6-200 9 Timur Walsh. [address] [facility], [address], [place], [facility], [place]. tel:[phone] Referring Provider: Darin Short, [address], [place], [address]. tel:[phone] OFFICE/OUTPA TIENT VISIT, EST [facility], [address], [place], [facility], tel:[phone] [facility] No Information 200 9 Timur Walsh. [address] [facility], [address], [place], [facility], [place]. tel:[phone] [facility], [address], [place], [facility], [place] tel:[phone] [facility] No Information 0 200 9 Timur Walsh. [address] [facility], [address], [place], [facility], . tel:[phone] OFFICE/OUTPA TIENT VISIT, NEW [facility], [address], [place], [facility], [place] tel:[phone] [facility] Thoracic or lumbosacral neuritis or radiculitis, unspecifiedLu mbosacral spondylosis without myelopathySac roiliitis, not elsewhere classifiedDeg eneration of lumbar or lumbosacral intervertebra l discLumbosacr al spondylosis without myelopathy Sep-2 9 Timur Walsh. [address] [facility], [address], [place], [facility], . tel:[phone] Referring Provider: Darin Short, [place], [address]. tel:[phone] Family History Family Member Type Diagnosis Age At Onset Mother Problem (finding) Cancer Mother Problem (finding) Spinal disease, lumbar Immunizations Vaccine Date Status Comments Flu (split) (3 yrs or older) administered Source: Other Provider Flu (split) (3 yrs or older) administered Source: Other Provider Payers Payer name Insurance type Covered republican ID Authornyaa susan(s) Medicare Jose Angel [id number] Medicaid [facility] [id number] Social History Type Description Quantity Date Captured Comments Alcohol Use Details Unknown Caffeine Use Details Unknown Tobacco Use Status Smoking Status No Information Sex Male Chief Complaint And Reason For Visit No Information Plan Of Treatment Date Type Action Status Goal ORT. Due on due Goal RX Report. Due on 2 due Goal Influenza vaccine. Due on Oc due Goal Depression screening. Due on due Goal AUDIT-C. Due on due Goal ORT. Due on due Goal RX Report. Due on 2 due Goal Influenza vaccine. Due on Oc due Goal Depression screening. Due on due Goal AUDIT-C. Due on due Goal RX Report. Due on due Goal ORT. Due on due Goal AUDIT-C. Due on due Goal Influenza vaccine. Due on Oc due Goal Depression screening. Due on due Goal RX Report. Due on due Goal AUDIT-C. Due on due Goal ORT. Due on due Goal Influenza vaccine. Due on Oc due Goal Depression screening. Due on due Goal ORT. Due on due Goal Influenza vaccine. Due on Oc due Goal Depression screening. Due on due Goal RX Report. Due on due Goal AUDIT-C. Due on due Goal Influenza vaccine. Due on Oc due Goal Depression screening. Due on due Goal RX Report. Due on due Goal ORT. Due on due Goal AUDIT-C. Due on due Goal Influenza vaccine. Due on Oc due Goal Depression screening. Due on due Goal ORT. Due on due Goal AUDIT-C. Due on due Goal RX Report. Due on due Goal ORT. Due on due Goal RX Report. Due on due Goal Influenza vaccine. Due on Oc due Goal AUDIT-C. Due on due Goal Depression screening. Due on due Goal ORT. Due on due Goal RX Report. Due on due Goal Depression screening. Due on due Goal AUDIT-C. Due on due Goal Influenza vaccine. Due on Oc due Goal ORT. Due on due Goal RX Report. Due on due Goal Depression screening. Due on due Goal AUDIT-C. Due on due Goal Influenza vaccine. Due on Oc due Goal AUDIT-C. Due on due Goal Influenza vaccine. Due on Oc due Goal ORT. Due on due Goal RX Report. Due on due Goal Depression screening. Due on due Goal Influenza vaccine. Due on Oc due Goal AUDIT-C. Due on due Goal RX Report. Due on due Goal ORT. Due on due Goal Depression screening. Due on due Goal AUDIT-C. Due on due Goal Influenza vaccine. Due on Oc due Goal RX Report. Due on due Goal ORT. Due on due Goal Depression screening. Due on due Goal RX Report. Due on due Goal Depression screening. Due on due Goal Influenza vaccine. Due on Oc due Goal ORT. Due on due Goal AUDIT-C. Due on due Goal AUDIT-C. Due on due Goal Depression screening. Due on due Goal RX Report. Due on 1 due Goal ORT. Due on due Goal Tobacco cessation counseling completed Goal Depression screening. Due on due Goal Influenza vaccine. Due on Oc due Goal RX Report. Due on 0 due Goal ORT. Due on due Goal ORT. Due on due Goal RX Report. Due on 0 due Goal Depression screening. Due on due Goal Influenza vaccine. Due on Oc due Goal ORT. Due on due Goal Depression screening. Due on due Goal RX Report. Due on 0 due Goal Influenza vaccine. Due on Oc due Goal Depression screening. Due on due Goal Influenza vaccine. Due on Oc due Goal RX Report. Due on 0 due Goal ORT. Due on due Goal RX Report. Due on 0 due Goal Depression screening. Due on due Goal Influenza vaccine. Due on Oc due Goal ORT. Due on due Goal RX Report. Due on 0 due Goal Influenza vaccine. Due on Oc due Goal Depression screening. Due on due Goal ORT. Due on due Goal Influenza vaccine. Due on Oc due Goal RX Report. Due on 0 due Goal Depression screening. Due on due Goal ORT. Due on due Goal RX Report. Due on 0 due Goal Influenza vaccine. Due on Oc due Goal ORT. Due on due Goal Depression screening. Due on due Goal Influenza vaccine. Due on Oc due Goal ORT. Due on due Goal RX Report. Due on 0 due Goal Depression screening. Due on due Goal RX Report. Due on 0 due Goal Influenza vaccine. Due on Oc due Goal Depression screening. Due on due Goal ORT. Due on due Goal Influenza vaccine. Due on Oc due Goal RX Report. Due on 0 due Goal ORT. Due on due Goal Depression screening. Due on due Goal Influenza vaccine. Due on Oc due Goal Depression screening. Due on due Goal ORT. Due on due Goal RX Report. Due on 0 due Goal ORT. Due on due Goal RX Report. Due on 0 due Goal Influenza vaccine. Due on Oc due Goal Depression screening. Due on due Goal RX Report. Due on 0 due Goal Depression screening. Due on due Goal Depression Education. Due on due Goal ORT. Due on due Goal AUDIT-C. Due on due Goal Influenza vaccine. Due on due Goal Depression screening. Due on due Goal RX Report. Due on 9 due Goal ORT. Due on due Goal Influenza vaccine. Due on due Goal AUDIT-C. Due on due Goal Depression Education. Due on due Goal AUDIT-C. Due on due Goal ORT. Due on due Goal Depression screening. Due on due Goal Influenza vaccine. Due on due Goal Depression Education. Due on due Goal RX Report. Due on 9 due Goal Depression Education. Due on due Goal Depression Education. Due on due Goal Depression Education. Due on due Goal Depression Education. Due on due Goal Depression Education. Due on due Goal Depression Education. Due on due Goal Depression Education. Due on due Goal Depression Education. Due on due Goal Depression Education. Due on due Goal Depression Education. Due on due Goal Depression Education. Due on due Goal Depression Education. Due on due Goal Tobacco cessation counseling completed Goal Depression Education. Due on due Goal Tobacco cessation counseling completed Goal Depression Education. Due on due Goal Tobacco cessation counseling completed Goal Depression Education. Due on due Goal Depression Education. Due on due Goal Depression Education. Due on due Goal Tobacco cessation counseling completed Goal Tobacco cessation counseling completed Goal Tobacco cessation counseling completed Goal Tobacco cessation counseling completed Goal Tobacco cessation counseling completed Goal Tobacco cessation counseling completed Goal Tobacco cessation counseling completed Goal Tobacco cessation counseling completed Goal Tobacco cessation counseling completed Goal Tobacco cessation counseling completed Goal Depression Education. Due on due Goal Tobacco cessation counseling completed Goal Depression Education. Due on due Goal Tobacco cessation counseling completed Goal Tobacco cessation counseling completed Goal Tobacco cessation counseling completed Goal Tobacco cessation counseling completed Goal Tobacco cessation counseling completed Goal Tobacco cessation counseling completed Goal Tobacco cessation counseling completed Goal Tobacco cessation counseling completed Goal Tobacco cessation counseling completed Goal Tobacco cessation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
--- NOTE | 2023-05-26 05:13 | PC.NURSE ---
pt is being discharged home, his son is picking him up and won't be able to be here until he gets off work at 7
[2023-05-26 06:37] VITALS: BP 135/86; PULSE 79; RESP 20; TEMP 36.7; O2SAT 98
== END 2023-05-26 07:16 | disposition home or self-care (01) ==
PROVIDERS: Emergency Provider Emergency Medicine; PCP Family Medicine
DX: M79.604 Pain in right leg (principal); F17.210 Nicotine dependence, cigarettes, uncomplicated; Z87.828 Personal history of other (healed) physical injury and trauma
CPT/HCPCS: 99283

== ENCOUNTER 2023-06-26 18:37 | Emergency (ER) | payer MEDICARE, MEDICAID, SELFPAY ==
[2023-06-26 18:38] VITALS: BP 126/76; PULSE 94; RESP 19; TEMP 36.9; O2SAT 98; BMI 28.3
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
[2023-06-26 19:32] VITALS: BP 126/80; PULSE 94; RESP 19; TEMP 36.9
== END 2023-06-26 19:33 | disposition home or self-care (01) ==
PROVIDERS: Emergency Provider Nurse Practitioner; PCP Family Medicine
DX: Z76.0 Encounter for issue of repeat prescription (principal)
CPT/HCPCS: 99211; G0463

== ENCOUNTER 2023-11-23 19:29 | Emergency (ER) | payer MEDICARE, SELFPAY ==
[2023-11-23 19:31] VITALS: BP 127/81; PULSE 74; RESP 16; TEMP 36.7; O2SAT 95; BMI 27.1
--- NOTE | 2023-11-23 20:24 | XR_ITS ---
PROCEDURE INFORMATION: Exam: XR Chest Exam date and time: 11/23/2023 8:45 PM Age: 78 years old Clinical indication: Injury or trauma; Fall; Blunt trauma (contusions or hematomas); Additional info: Mechanical fall, pain, >65 TECHNIQUE: Imaging protocol: Radiologic exam of the chest. Views: 1 view. COMPARISON: CT CHEST WO CON 08/27/2022 9:05 AM FINDINGS: Lungs: Clear, symmetrically inflated lungs. Pleural spaces: No pleural effusion. No pneumothorax. Heart/Mediastinum: Cardiac silhouette is normal in size for technique. Bones/joints: No displaced fractures are evident. IMPRESSION: No acute cardiopulmonary abnormality.
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
--- NOTE | 2023-11-23 20:24 | XR_ITS ---
PROCEDURE INFORMATION: Exam: XR Left Shoulder Exam date and time: 11/23/2023 8:45 PM Age: 78 years old Clinical indication: Injury or trauma; Fall; Blunt trauma (contusions or hematomas); Shoulder; Left; Additional info: Mechanical fall, pain, >65 TECHNIQUE: Imaging protocol: Radiologic exam of the left shoulder. Views: 2 or more views. COMPARISON: CR SHOULDCMLT XR shoulder LT min 2V 02/24/2018 10:52 PM FINDINGS: Bones/joints: No evidence of acute fracture or dislocation. No erosive disease. No significant degenerative change. Soft tissues: Normal. IMPRESSION: No acute bony injury. No significant arthropathy.
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
--- NOTE | 2023-11-23 20:24 | CT_ITS ---
PROCEDURE INFORMATION: Exam: CT Thoracic Spine Without Contrast Exam date and time: 11/23/2023 8:44 PM Age: 78 years old Clinical indication: Injury or trauma; Fall; Blunt trauma (contusions or hematomas); Additional info: Mechanical fall, pain, >65 TECHNIQUE: Imaging protocol: Computed tomography of the thoracic spine without contrast. Radiation optimization: All CT scans at this facility use at least one of these dose optimization techniques: automated exposure control; mA and/or kV adjustment per patient size (includes targeted exams where dose is matched to clinical indication); or iterative reconstruction. COMPARISON: CT CERVICAL SPINE WO CON 11/23/2023 8:41 PM FINDINGS: Bones/joints: There is a superior endplate deformity at T12 without posterior element involvement. There is less than 25% loss of vertebral body height. No other acute bony injury is seen in the thoracic spine. There are numerous Schmorl's nodes. Spinal canal is widely patent. There is mild costovertebral junction degenerative change. Soft tissues: Paraspinous soft tissues appear normal. Lungs: Lung parenchyma is notable for centrilobular emphysema. IMPRESSION: Superior endplate deformity noted at T12 with less than 25% loss of vertebral body height. No posterior element involvement. Widely patent spinal canal and neural foramina.
--- NOTE | 2023-11-23 20:24 | CT_ITS ---
PROCEDURE INFORMATION: Exam: CT Cervical Spine Without Contrast Exam date and time: 11/23/2023 8:41 PM Age: 78 years old Clinical indication: Injury or trauma; Fall; Blunt trauma; Additional info: Mechanical fall, pain, >65 TECHNIQUE: Imaging protocol: Computed tomography of the cervical spine without contrast. Radiation optimization: All CT scans at this facility use at least one of these dose optimization techniques: automated exposure control; mA and/or kV adjustment per patient size (includes targeted exams where dose is matched to clinical indication); or iterative reconstruction. COMPARISON: [facility] CT cervical spine wo con 02/24/2018 10:41 PM FINDINGS: Bones: No acute fracture. Mild anterolisthesis of C3 on C4, unchanged. Multilevel degenerative changes manifested as endplate osteophyte formation, facet arthropathy, uncovertebral hypertrophy, intervertebral disc height loss. Additionally, there is partial fusion posterior elements of C2 and C3. No severe spinal canal stenosis. Moderate to severe neural foraminal narrowing at C5/C6 level. Lungs: Lung apices are normal. Soft tissues: Unremarkable. IMPRESSION: 1. No acute osseous abnormality of the cervical spine. Recommend correlation with history/physical exam and if clinical concern persists consider further evaluation with MRI. 2. Other findings as above.
--- NOTE | 2023-11-23 20:24 | CT_ITS ---
PROCEDURE INFORMATION: Exam: CT Head Without Contrast Exam date and time: 11/23/2023 8:39 PM Age: 78 years old Clinical indication: Injury or trauma; Fall; Blunt trauma (contusions or hematomas); Additional info: Mechanical fall, pain, >65 TECHNIQUE: Imaging protocol: Computed tomography of the head without contrast. Radiation optimization: All CT scans at this facility use at least one of these dose optimization techniques: automated exposure control; mA and/or kV adjustment per patient size (includes targeted exams where dose is matched to clinical indication); or iterative reconstruction. COMPARISON: [facility] CT head/brain wo con 04/16/2018 12:26 PM FINDINGS: Brain: There is mild enlargement CSF containing spaces consistent with global parenchymal volume loss. No acute intracranial hemorrhage. No evidence of large acute territorial infarct or significant cerebral edema. No midline shift or significant mass effect. Cerebral ventricles: No hydrocephalus. Paranasal sinuses: The paranasal sinuses are clear. Mastoid air cells: The mastoid air cells are clear. Orbital cavities: Postsurgical changes of the right lens. Bones: No acute fracture. Soft tissues: The superficial soft tissues are normal. IMPRESSION: 1. No acute intracranial hemorrhage or large territorial infarct recommend correlation with history/physical exam and if clinical concern persists consider further evaluation with MRI. 2. Other findings as above.
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
[2023-11-23] MEDS: METHOCARBAMOL 500MG TABLET 500 MG PO (21:04)
[2023-11-23] MEDS: LIDOCAINE 5% TRANSDERMAL PATCH 1 EACH TP (21:04)
[2023-11-23] MEDS: ACETAMINOPHEN 500MG TAB 1000 MG PO (21:04)
[2023-11-23 21:35] LABS: Basophils # 0.1 K/mm3 (0-0.2); Eosinophils # 0.3 K/mm3 (0.0-0.4); Eosinophils % 4.3 % (0.1-12.0); Hematocrit 42.2 % (42.0-52.0); Hemoglobin 13.2 g/dL (14.1-18.0); Lymphocytes # 1.9 K/mm3 (0.7-4.5); Lymphocytes % 29.4 % (10-50); Mean Corpuscular HGB Conc 31.4 g/dL (31.8-35.4); Mean Corpuscular Hemoglobin 26.8 pg (27.0-31.2); Mean Corpuscular Volume 85.6 fl (80-94); Mean Platelet Volume 8.8 fl (7.4-10.4); Monocytes # 0.5 K/mm3 (0.1-1.0); Monocytes % 7.4 % (1.7-9.3); Neutrophils # 3.8 K/mm3 (1.8-7.8); Neutrophils % 57.9 % (37.0-80.0); Platelet Count 196 K/mm3 (142-424); Red Blood Count 4.93 M/mm3 (4.60-6.20); Red Cell Distribution Width 19.1 % (11.5-17.5); White Blood Count 6.5 K/mm3 (4.8-10.8)
[2023-11-23 21:40] LABS: Alanine Aminotransferase 11 U/L (12-78); Albumin/Globulin Ratio 1.3 (1.1-1.8); Alkaline Phosphatase 95 U/L (38-126); Anion Gap 10.4 mEq/L (5-15); Aspartate Amino Transferase 19 U/L (17-59); Bilirubin,Total 0.4 mg/dl (0.2-1.3); Blood Urea Nitrogen 11 mg/dl (9-20); Calcium 9.5 mg/dl (8.4-10.2); Carbon Dioxide 29 mmol/L (22.0-30.0); Chloride 102 mmol/L (98-107); Creatinine Clearance Estimated 81 mL/min (50-200); Estimated Glomerular Filt Rate 110 ml/min (>60); GFR (African American) 133 ML/MIN (>60); Globulin 3.1 g/dL (1.3-3.2); Glucose 107 mg/dl (74-100); Lipase 38 U/L (23-300); Potassium 4.4 mmoL/L (3.5-5.1); Sodium 137 mmol/L (136-145); Total Protein,Serum 7.1 g/dl (6.3-8.2)
[2023-11-23 22:28] VITALS: BP 130/90; PULSE 82; RESP 16; TEMP 36.7; O2SAT 98
== END 2023-11-23 22:31 | disposition home or self-care (01) ==
PROVIDERS: Emergency Provider Emergency Medicine; PCP Family Medicine
DX: S22.080A Wedge compression fracture of T11-T12 vertebra, initial encounter for closed fracture (principal); R42 Dizziness and giddiness; R11.0 Nausea; F17.210 Nicotine dependence, cigarettes, uncomplicated; W01.10XA Fall on same level from slipping, tripping and stumbling with subsequent striking against unspecified object, initial encounter
CPT/HCPCS: 70450; 71045; 72125; 72128; 72131; 73030; 73060; 80053; 83690; 83735; 85025; 99285

== ENCOUNTER 2024-02-24 05:06 | Emergency (ER) | payer MEDICARE, MEDICAID, SELFPAY ==
[2024-02-24 05:16] VITALS: BP 137/78; PULSE 78; RESP 20; TEMP 36.6; O2SAT 97; BMI 26.7
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
[2024-02-24 05:42] LABS: Basophils # 0.1 K/mm3 (0-0.2); Basophils % 0.6 % (0.1-2.0); Eosinophils # 0.3 K/mm3 (0.0-0.4); Eosinophils % 3.9 % (0.1-12.0); Hematocrit 43.2 % (42.0-52.0); Hemoglobin 13.7 g/dL (14.1-18.0); Lymphocytes # 1.4 K/mm3 (0.7-4.5); Lymphocytes % 17.1 % (10-50); Mean Corpuscular HGB Conc 31.7 g/dL (31.8-35.4); Mean Corpuscular Hemoglobin 28.6 pg (27.0-31.2); Mean Corpuscular Volume 90.2 fl (80-94); Mean Platelet Volume 8.9 fl (7.4-10.4); Monocytes # 0.6 K/mm3 (0.1-1.0); Monocytes % 6.9 % (1.7-9.3); Neutrophils % 71.5 % (37.0-80.0); Platelet Count 198 K/mm3 (142-424); Red Blood Count 4.79 M/mm3 (4.60-6.20); Red Cell Distribution Width 15.6 % (11.5-17.5); White Blood Count 8.3 K/mm3 (4.8-10.8)
[2024-02-24 05:50] LABS: Albumin Level 4.1 g/dl (3.5-5.0); Chloride 104 mmol/L (98-107); Potassium 4.1 mmoL/L (3.5-5.1); Sodium 136 mmol/L (136-145)
[2024-02-24 05:52] LABS: Alanine Aminotransferase 10 U/L (12-78); Anion Gap 8.1 mEq/L (5-15); Aspartate Amino Transferase 22 U/L (17-59); Blood Urea Nitrogen 12 mg/dl (9-20); Carbon Dioxide 28 mmol/L (22.0-30.0); Creatinine Clearance Estimated 79 mL/min (50-200); Estimated Glomerular Filt Rate 131 ml/min (>60); GFR (African American) 159 ML/MIN (>60); Lactic Acid 0.8 mmol/L (0.7-2.1)
[2024-02-24 05:53] LABS: Albumin/Globulin Ratio 1.2 (1.1-1.8); Alkaline Phosphatase 74 U/L (38-126); Bilirubin,Total 0.5 mg/dl (0.2-1.3); Calcium 9.2 mg/dl (8.4-10.2); Globulin 3.4 g/dL (1.3-3.2); Glucose 115 mg/dl (74-100); Lipase 39 U/L (23-300); Total Protein,Serum 7.5 g/dl (6.3-8.2)
[2024-02-24 05:56] LABS: INR 0.98 (0.9-1.1)
[2024-02-24 06:30] VITALS: BP 123/60; PULSE 70; O2SAT 100
--- NOTE | 2024-02-24 07:20 | PC.NURSE ---
pt resting in bed. no needs addressed at this time. son at bedside. call light within reach
[2024-02-24 07:22] VITALS: BP 113/70; PULSE 83; O2SAT 98
--- NOTE | 2024-02-24 07:27 | PC.NURSE ---
Dr. Medina s/w JUDITHAD
--- NOTE | 2024-02-24 07:32 | PC.NURSE ---
dr negrete at bedside updating pt.
--- NOTE | 2024-02-24 07:38 | PC.NURSE ---
negrete at the bedside to speak to patient about admission. pt declines admission. Dr negrete spoke to patient about risks associated with leaving. this nurse advised patient to return with any new or worsening symptoms.
[2024-02-24 07:41] VITALS: BP 130/76; PULSE 74; RESP 20; TEMP 36.6; O2SAT 99
== END 2024-02-24 07:43 | disposition left against medical advice (07) ==
PROVIDERS: Emergency Provider Emergency Medicine; PCP Family Medicine
DX: C48.2 Malignant neoplasm of peritoneum, unspecified (principal); K56.609 Unspecified intestinal obstruction, unspecified as to partial versus complete obstruction; R10.32 Left lower quadrant pain; R11.2 Nausea with vomiting, unspecified; F17.210 Nicotine dependence, cigarettes, uncomplicated
CPT/HCPCS: 74177; 80053; 83605; 83690; 85025; 85610; 96361; 96374; 96375; 99285; J1170; J2405; J7120; Q9967

== ENCOUNTER 2024-04-19 15:46 | Emergency (ER) | payer MEDICARE, MEDICAID, SELFPAY ==
[2024-04-19] VITALS (8 sets, daily range): BP systolic 98–127; BP diastolic 58–85; PULSE 65–93; RESP 16–20; TEMP 36.8; O2SAT 95–100; BMI 24.3
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
[2024-04-19] MEDS: MORPHINE 2MG/ML SYRINGE 2 MG IV (16:29)
[2024-04-19] MEDS: ONDANSETRON 4MG/2ML VIAL 4 MG IV (16:29)
[2024-04-19 16:31] LABS: Basophils # 0.1 K/mm3 (0-0.2); Basophils % 0.6 % (0.1-2.0); Eosinophils # 0.1 K/mm3 (0.0-0.4); Eosinophils % 0.5 % (0.1-12.0); Hematocrit 35.2 % (42.0-52.0); Hemoglobin 11.7 g/dL (14.1-18.0); Lymphocytes # 1.4 K/mm3 (0.7-4.5); Lymphocytes % 15.7 % (10-50); Mean Corpuscular HGB Conc 33.1 g/dL (31.8-35.4); Mean Corpuscular Hemoglobin 27.7 pg (27.0-31.2); Mean Corpuscular Volume 83.7 fl (80-94); Mean Platelet Volume 8.3 fl (7.4-10.4); Monocytes # 0.5 K/mm3 (0.1-1.0); Monocytes % 5.5 % (1.7-9.3); Neutrophils % 77.7 % (37.0-80.0); Platelet Count 244 K/mm3 (142-424); Red Blood Count 4.21 M/mm3 (4.60-6.20); Red Cell Distribution Width 15.5 % (11.5-17.5)
[2024-04-19 16:34] LABS: Lactic Acid 1.5 mmol/L (0.7-2.1)
[2024-04-19 16:38] LABS: Albumin Level 3.1 g/dl (3.5-5.0); Chloride 99 mmol/L (98-107); INR 0.96 (0.9-1.1); Prothrombin Time 10.8 seconds (10.1-12.5)
[2024-04-19 16:39] LABS: Potassium 4.1 mmoL/L (3.5-5.1); Sodium 132 mmol/L (136-145)
[2024-04-19 16:41] LABS: Alanine Aminotransferase 14 U/L (12-78); Anion Gap 10.1 mEq/L (5-15); Aspartate Amino Transferase 24 U/L (17-59); Blood Urea Nitrogen 14 mg/dl (9-20); Carbon Dioxide 27 mmol/L (22.0-30.0); Creatinine Clearance Estimated 72 mL/min (50-200); Estimated Glomerular Filt Rate 110 ml/min (>60); GFR (African American) 133 ML/MIN (>60)
[2024-04-19 16:42] LABS: Alkaline Phosphatase 56 U/L (38-126); Bilirubin,Total 0.4 mg/dl (0.2-1.3); Calcium 8.7 mg/dl (8.4-10.2); Globulin 3.1 g/dL (1.3-3.2); Glucose 110 mg/dl (74-100); Total Protein,Serum 6.2 g/dl (6.3-8.2)
[2024-04-19 16:55] LABS: Microscopic, Urine URINE MICROSCOPIC (MICROSCOPIC)
[2024-04-19 17:09] LABS: Appearance,Urine CLEAR (Clear); Blood, Urine Negative (Negative); Color,Urine YELLOW (Yellow); Glucose,Urine (UA) Negative (Negative); Ketones,Urine Negative (Negative); Leukocyte Esterase,Urine Negative (Negative); Nitrate,Urine Negative (Negative); Protein,Urine TRACE (Negative); Specific Gravity, Urine 1.025 (1.005-1.030); Urobilinogen,Urine 0.2 EU/dl (0.2)
[2024-04-19 17:24] LABS: Bilirubin,Urine 1+ (Negative)
[2024-04-19] MEDS: IOPAMIDOL-370 (76%);100ML BOTTLE 75 ML IV (17:25)
[2024-04-19] MEDS: SODIUM CHLORIDE 0.9% 10ML SYR (RAD ONLY) 10 ML IV (17:25)
[2024-04-19 17:37] LABS: HIV (1&2) Antibody Rapid NONREACTIVE (NONREACTIVE)
--- NOTE | 2024-04-19 18:39 | PC.NURSE ---
rounded on pt. no new needs at this time.
[2024-04-19 19:56] LABS: Lipase 44 U/L (23-300)
[2024-04-19] MEDS: HYDROMORPHONE 2MG/ML SYRINGE 1 MG IV (19:56)
[2024-04-19] MEDS: LACTATED RINGERS 1000ML 1,000 ML 999 ML IV (19:56)
[2024-04-21 09:29] LABS: HCV Ab Non Reactive (Non Reactive)
== END 2024-04-19 20:39 | disposition left against medical advice (07) ==
PROVIDERS: Physician Assistant; Emergency Provider Emergency Medicine; PCP Family Medicine
DX: C79.9 Secondary malignant neoplasm of unspecified site (principal); K56.609 Unspecified intestinal obstruction, unspecified as to partial versus complete obstruction; R10.9 Unspecified abdominal pain
CPT/HCPCS: 74177; 80053; 81001; 83605; 83690; 85025; 85610; 86803; 87389; 96361; 96374; 96375; 99285; J1171; J2270; J2405; J7120; Q9967

== ENCOUNTER 2024-05-25 08:22 | Emergency (ER) | payer MEDICARE, MEDICAID, SELFPAY ==
[2024-05-25 08:35] VITALS: BP 122/68; PULSE 81; RESP 14; TEMP 36.8; O2SAT 97; BMI 25.9
--- NOTE | 2024-05-25 08:48 | PC.NURSE ---
Dr. Apple at bedside
--- NOTE | 2024-05-25 08:56 | CT_ITS ---
FINAL REPORT TECHNIQUE: Thin section axial images are obtained through the abdomen and pelvis after intravenous contrast. Reconstruction images were obtained from the axial data. Exam was performed using dose reduction techniques. CLINICAL HISTORY: abd pain, n/v COMPARISON: 02/24/2024 FINDINGS: LUNG BASES: Lung bases are clear. Heart size is normal. LIVER: New, 10 mm hypodense lesion in the anterior left hepatic lobe on image 29. GALLBLADDER/BILIARY SYSTEM: Gallbladder is absent. Intrahepatic and extrahepatic biliary ductal dilatation is stable. SPLEEN: Unremarkable. PANCREAS: Unremarkable. ADRENALS: Unremarkable. SYSTEM: Left renal cyst. No hydronephrosis, solid renal mass, or renal stone. Mild urinary bladder wall thickening, stable. GI TRACT: Mild distention of proximal duodenum. There has been interval increase in size of a mass in the right upper quadrant that invades the duodenum measuring 12.6 x 7.5 x 11.6 cm. Mass may now also involve the more distal small bowel. A surgical anastomosis is seen from partial right colectomy. More distal colon is without acute abnormality. PELVIC ORGANS: Prostate is mildly enlarged. LYMPH NODES/RETROPERITONEUM/MESENTERY: Small retroperitoneal lymph nodes are likely unchanged. ABDOMINAL WALL: Previously seen area of fat with soft tissue is stable and could be related to fat necrosis. There is a small fat-containing ventral hernia. VASCULAR: No abdominal aortic aneurysm. Atherosclerotic disease is noted. OTHER: No ascites. Remaining soft tissues without acute abnormality. BONES: No acute osseous abnormality. IMPRESSION: Progression of disease with increased size of right abdominal mass likely involving small bowel loops. New liver lesion, metastasis not excluded. Reviewed, Interpreted and Dictated by Isela Parr MD Transcribed by Charlee Elizabeth Authenticated and [facility]
[2024-05-25 09:00] VITALS: BP 94/55; PULSE 65; O2SAT 95
[2024-05-25 09:01] LABS: Albumin Level 3.2 g/dl (3.5-5.0); Basophils # 0.1 K/mm3 (0-0.2); Basophils % 0.8 % (0.1-2.0); Chloride 94 mmol/L (98-107); Eosinophils # 0.3 K/mm3 (0.0-0.4); Eosinophils % 2.9 % (0.1-12.0); Hematocrit 30.6 % (42.0-52.0); Hemoglobin 10.2 g/dL (14.1-18.0); Lymphocytes # 1.6 K/mm3 (0.7-4.5); Lymphocytes % 18.8 % (10-50); Mean Corpuscular HGB Conc 33.3 g/dL (31.8-35.4); Mean Corpuscular Hemoglobin 27.1 pg (27.0-31.2); Mean Corpuscular Volume 81.2 fl (80-94); Monocytes # 0.7 K/mm3 (0.1-1.0); Monocytes % 7.9 % (1.7-9.3); Neutrophils % 69.6 % (37.0-80.0); Platelet Count 314 K/mm3 (142-424); Red Blood Count 3.77 M/mm3 (4.60-6.20); Red Cell Distribution Width 16.6 % (11.5-17.5); White Blood Count 8.7 K/mm3 (4.8-10.8)
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
[2024-05-25 09:02] LABS: Sodium 129 mmol/L (136-145)
[2024-05-25 09:04] LABS: Alanine Aminotransferase 13 U/L (12-78); Aspartate Amino Transferase 21 U/L (17-59); Blood Urea Nitrogen 17 mg/dl (9-20); Carbon Dioxide 32 mmol/L (22.0-30.0); Creatinine Clearance Estimated 75 mL/min (50-200); Estimated Glomerular Filt Rate 131 ml/min (>60); GFR (African American) 159 ML/MIN (>60)
[2024-05-25 09:05] LABS: Alkaline Phosphatase 64 U/L (38-126); Bilirubin,Total 0.3 mg/dl (0.2-1.3); Calcium 9.1 mg/dl (8.4-10.2); Globulin 3.1 g/dL (1.3-3.2); Glucose 119 mg/dl (74-100); Total Protein,Serum 6.3 g/dl (6.3-8.2)
[2024-05-25 09:18] LABS: Lipase 37 U/L (23-300)
[2024-05-25] MEDS: ONDANSETRON 4MG/2ML VIAL 4 MG IV (09:23)
[2024-05-25] MEDS: LACTATED RINGERS 1000ML 1,000 ML 999 ML IV (09:23)
[2024-05-25] MEDS: MORPHINE 4MG/ML SYRINGE 4 MG IV ×2 (09:24→11:14)
[2024-05-25] MEDS: IOPAMIDOL-370 (76%);100ML BOTTLE 75 ML IV (09:32)
--- NOTE | 2024-05-25 09:42 | PC.NURSE ---
urine sent to lab.
[2024-05-25 09:58] LABS: Lactic Acid 1.3 mmol/L (0.7-2.1)
[2024-05-25 10:00] VITALS: BP 97/38; PULSE 75; O2SAT 90
[2024-05-25 10:01] VITALS: BP 97/38; PULSE 85; O2SAT 98
--- NOTE | 2024-05-25 10:28 | PC.NURSE ---
CHECKED ON PT HE WAS RESTLESS SETTING IN BED SO HELPED HIM TO THE CHAIR BC HE WAS HAVING LEG CRAMPS. HE WANTED COFFEE BUT MD WANT HIM TO WAIT FOR CT SCAN RESULTS
[2024-05-25 11:02] VITALS: BP 100/83; PULSE 90; O2SAT 96
--- NOTE | 2024-05-25 11:06 | PC.NURSE ---
PT REQUESTS SOMETHING FOR PAIN, I INQUIRED WITH WHO GAVE A VERBAL FOR MORPHINE
--- NOTE | 2024-05-25 11:15 | PC.NURSE ---
I ROUNDED ON THE PT. HE REQUESTS A CUP OF COFFE. IS GOING TO GO TALK TO HIM. CALL [facility] IN [place].
--- NOTE | 2024-05-25 11:20 | PC.NURSE ---
BEDSIDE UPDATING THE PT
--- NOTE | 2024-05-25 11:25 | PC.NURSE ---
PT IS REFUSING TRANSFER
--- NOTE | 2024-05-25 11:29 | PC.NURSE ---
I TOOK THE PT A CUP OF COFFEE. CALL [facility] IN [place].
[2024-05-25 11:47] VITALS: BP 0/0; PULSE 65; RESP 18; TEMP 36.9
== END 2024-05-25 11:49 | disposition home or self-care (01) ==
LOC: ER 08:35
PROVIDERS: Emergency Provider Student in an Organized Health Care Education/Training Program; PCP Family Medicine
DX: R19.00 Intra-abdominal and pelvic swelling, mass and lump, unspecified site (principal); E86.0 Dehydration; R10.84 Generalized abdominal pain; R11.2 Nausea with vomiting, unspecified
CPT/HCPCS: 74177; 80053; 83605; 83690; 85025; 96361; 96374; 96375; 99285; J2270; J2405; J7120; Q9967

== ENCOUNTER 2024-06-27 23:36 | Emergency (ER) | payer MEDICARE, MEDICAID, SELFPAY ==
[2024-06-27 23:36] VITALS: BP 104/50; PULSE 93; RESP 16; TEMP 36.7; O2SAT 97; BMI 25.5
--- NOTE | 2024-06-27 23:49 | XR_ITS ---
PROCEDURE INFORMATION: Exam: XR Chest Exam date and time: 06/28/2024 12:51 AM Age: 78 years old Clinical indication: Other: Peripheral edema TECHNIQUE: Imaging protocol: Radiologic exam of the chest. Views: 1 view. COMPARISON: CR XR CHEST PORTABLE 11/23/2023 8:45 PM FINDINGS: Tubes, catheters and devices: Right IJ [id number] is noted with the catheter tip projecting over the mid superior vena cava. Lungs: Unremarkable. No consolidation. Pleural spaces: There is blunting of the lateral left costophrenic angle. Heart/Mediastinum: Unremarkable. No cardiomegaly. Vasculature: Unremarkable. Bones/joints: Unremarkable. IMPRESSION: 1. Blunting of the lateral left costophrenic angle may represent small effusion or pleural thickening. 2. Right IJ Onnron-S-Nnnn tip projects over the mid superior vena cava.
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
[2024-06-28 00:20] LABS: Microscopic, Urine URINE MICROSCOPIC (MICROSCOPIC)
[2024-06-28 00:22] LABS: Basophils % 0.1 % (0.1-2.0); Hematocrit 26.2 % (42.0-52.0); Hemoglobin 8.3 g/dL (14.1-18.0); Lymphocytes # 0.9 K/mm3 (0.7-4.5); Mean Corpuscular HGB Conc 31.7 g/dL (31.8-35.4); Mean Corpuscular Hemoglobin 24.5 pg (27.0-31.2); Mean Corpuscular Volume 77.3 fl (80-94); Mean Platelet Volume 10.2 fl (7.4-10.4); Monocytes # 0.8 K/mm3 (0.1-1.0); Monocytes % 5.8 % (1.7-9.3); Neutrophils # 12.6 K/mm3 (1.8-7.8); Neutrophils % 87.7 % (37.0-80.0); Platelet Count 231 K/mm3 (142-424); Red Blood Count 3.39 M/mm3 (4.60-6.20); Red Cell Distribution Width 18.8 % (11.5-17.5); White Blood Count 14.4 K/mm3 (4.8-10.8)
[2024-06-28 00:24] LABS: MANUAL DIFFERENTIAL MANUAL DIFFERENTIAL (MANUAL DIFF)
[2024-06-28 00:25] LABS: Blood, Urine Negative (Negative); Glucose,Urine (UA) Negative (Negative); Ketones,Urine Negative (Negative); Leukocyte Esterase,Urine TRACE (Negative); Nitrate,Urine Negative (Negative); PH,Urine 5.5 (5.0-8.5); Protein,Urine Negative (Negative)
[2024-06-28] MEDS: ONDANSETRON 4MG/2ML VIAL 4 MG IV (00:25)
[2024-06-28] MEDS: MORPHINE 4MG/ML SYRINGE 4 MG IV ×2 (00:25→01:53)
[2024-06-28] MEDS: LACTATED RINGERS 1000ML 1,000 ML 999 ML IV (00:25)
[2024-06-28 00:27] LABS: Appearance,Urine Slightly Cloudy (Clear); Bilirubin,Urine 1+ (Negative); Color,Urine Dark Yellow (Yellow)
[2024-06-28 00:29] LABS: Alanine Aminotransferase 18 U/L (12-78); Albumin Level 2.4 g/dl (3.5-5.0); Albumin/Globulin Ratio 0.9 (1.1-1.8); Alkaline Phosphatase 51 U/L (38-126); Anion Gap 5.2 mEq/L (5-15); Aspartate Amino Transferase 24 U/L (17-59); Bilirubin,Total 0.5 mg/dl (0.2-1.3); Blood Urea Nitrogen 34 mg/dl (9-20); Calcium 8.6 mg/dl (8.4-10.2); Carbon Dioxide 35 mmol/L (22.0-30.0); Chloride 96 mmol/L (98-107); Creatinine Clearance Estimated 72 mL/min (50-200); Estimated Glomerular Filt Rate 131 ml/min (>60); GFR (African American) 159 ML/MIN (>60); Globulin 2.6 g/dL (1.3-3.2); Glucose 153 mg/dl (74-100); Lactic Acid 2.6 mmol/L (0.7-2.1); Lipase 39 U/L (23-300); Potassium 4.2 mmoL/L (3.5-5.1); Sodium 132 mmol/L (136-145)
[2024-06-28 00:30] LABS: INR 1.09 (0.9-1.1); Prothrombin Time 12.1 seconds (10.1-12.5)
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
[2024-06-28 00:38] LABS: NT Pro Brain Natriuretic Pep. 1460 pg/mL (0-450)
[2024-06-28 00:40] LABS: Bacteria,Urine 2+ /lpf; Squamous Epithelial Cell,Urine Occasional #/hpf (0-5)
[2024-06-28 00:51] LABS: Lymphocytes % 6 % (10-50); Microcytosis 2+; Monocytes % 4 % (2-9); Neutrophils % 90 % (42-76); Platelet Estimate Normal; Total Cells Counted 100
--- NOTE | 2024-06-28 00:58 | XR_ITS ---
PROCEDURE INFORMATION: Exam: XR Abdomen Exam date and time: 06/28/2024 1:21 AM Age: 78 years old Clinical indication: Device placement; Gi device; Nasogastric tube; Additional info: Ng insert TECHNIQUE: Imaging protocol: Radiologic exam of the abdomen. Views: Frontal supine view of the abdomen. 1 View. COMPARISON: CT ANGIO ABDOMEN PELVIS 06/28/2024 12:36 AM FINDINGS: Tubes, catheters and devices: Nasogastric tube in the stomach Gastrointestinal tract: Normal. No bowel dilation. Bones/joints: Unremarkable. IMPRESSION: Nasogastric tube in the stomach
[2024-06-28] MEDS: PIPERACILLIN/TAZO 4.5 GM in 0.9 % SODIUM CHLORIDE 100 ML IV (01:04)
[2024-06-28] MEDS: TETRACAINE/BENZOCAINE/BUTAMBEN 56 GM SPRAY TP (01:05)
[2024-06-28] MEDS: IOPAMIDOL-370 (76%);100ML BOTTLE 80 ML IV (01:09)
[2024-06-28] MEDS: SODIUM CHLORIDE 0.9% 10ML SYR (RAD ONLY) 10 ML IV (01:09)
[2024-06-28] MEDS: 0.9 % SODIUM CHLORIDE 50 ML VIAL IV (01:09)
--- NOTE | 2024-06-28 01:27 | PC.NURSE ---
[facility] refused patient due to capacity issues
--- NOTE | 2024-06-28 01:29 | PC.NURSE ---
xray done at bedside
[2024-06-28 01:48] VITALS: BP 121/61
[2024-06-28 02:00] VITALS: BP 105/67
[2024-06-28] MEDS: LACTATED RINGERS 1000ML 1,000 ML 100 ML IV (02:01)
--- NOTE | 2024-06-28 02:13 | PC.NURSE ---
[facility] declined call for weather, EMS called
--- NOTE | 2024-06-28 02:15 | PC.NURSE ---
EMS notified of need for transport to [facility]
--- NOTE | 2024-06-28 02:35 | PC.NURSE ---
report called to REBEKAH Wesley at [facility]
[2024-06-28] MEDS: HYDROMORPHONE 2MG/ML SYRINGE 0.5 MG IV (03:37)
[2024-06-28 04:17] VITALS: BP 99/47; PULSE 77; RESP 20; TEMP 36.7; O2SAT 95
[2024-06-28 04:17] LABS: Reflex Lactic Add Lactic Reflex
--- NOTE | 2024-06-28 04:19 | PC.NURSE ---
Pt to via ambulance [facility] here to transport patient. Skin pale warm and dry Pt awake and alert at time of transfer. Resp full and easy. IV site without redness or edema
--- NOTE | 2024-07-01 10:58 | PC.NURSE ---
URINE CULTURE FAXED TO AT [phone]
== END 2024-06-28 04:20 | disposition short-term general hospital (02) ==
PROVIDERS: Emergency Provider Emergency Medicine; PCP Family Medicine
DX: E87.1 Hypo-osmolality and hyponatremia (principal); E79.89 Other specified disorders of purine and pyrimidine metabolism; E87.20 Acidosis, unspecified; C76.2 Malignant neoplasm of abdomen; K56.609 Unspecified intestinal obstruction, unspecified as to partial versus complete obstruction; R11.10 Vomiting, unspecified; R10.9 Unspecified abdominal pain
CPT/HCPCS: 71045; 74018; 74174; 80053; 81001; 83605; 83690; 83880; 85007; 85025; 85027; 85610; 87086; 87088; 87186; 96361; 96365; 96374; 96375; 99291; J1171; J2270; J2405; J2543; J7120; Q9967